=== PATIENT | male | born 1955 | race Caucasian/White ===

== ENCOUNTER 2024-08-06 18:46 | Emergency (ER) | payer OTHER ==
--- OUTSIDE RECORDS SUMMARY | 2024-08-06 18:52 | XMS REPORT | Clinical Summary ---
Author Name Unknown Organization [facility] Address [address] [place] [address] Care Team Providers Care File Drawer Finisher Name Role Phone Wen Cantu MD Primary Care Provider [phone] Rehan Gagnon MD Unavailable [phone] Dianna Rich DDS Unavailable [phone] Yolanda Kingston MD Unavailable Weston Ontiveros MD Unavailable [phone] Az Cruz MD Unavailable Kalee Jules MD Unavailable Ros Saucedo MD Unavailable [phone] Allergies Active Allergy Reactions Criticality Noted Date Comments Pembrolizumab Shortness Of Breath High 06/20/2023 He had sob, hives, rash all over the body Medications Medication Sig Dispensed Refills Start Date End Date Status fexofenadine (NIKKY) 180 mg tabletIndications:Mal ignant neoplasm of mandible Take 1 tablet (180 mg) by mouth daily. 90 tablet 2 09/12/20 23 Active levothyroxine (SYNTHROID, LEVOTHROID) 75 mcg tabletIndications:Squ amous cell carcinoma of head and neck TAKE 1 TABLET BY MOUTH EVERY DAY 90 tablet 1 07/31/20 24 Active NIFEdipine (PROCARDIA XL) 60 mg 24 hr tabletIndications:Abs cess of face Take 1 tablet (60 mg) by mouth daily for 66 days. 60 tablet 3 07/18/20 24 024 Active pregabalin (LYRICA) 25 mg capsuleIndications:Ab scess of face Take 1 capsule (25 mg) by mouth daily. 30 capsule 3 07/17/20 24 Active ondansetron (Zofran) 4 mg tabletIndications:Abs cess of face Take 1 tablet (4 mg) by mouth every 8 (eight) hours as needed for nausea. 30 tablet 07/17/20 24 Active Additional Information Patient not taking.Reason: Other, Reported on 07/21/2024 ondansetron (ZOFRAN) 4 mg tabletIndications:Abs cess of face Take 1 tablet (4 mg) by mouth as needed for nausea. 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 45 tablet 08/05/20 24 Active fexofenadine (NIKKY) 180 mg tabletIndications:Mal ignant neoplasm of mandible Take 1 tablet (180 mg) by mouth daily. 30 tablet 2 11/30/19 23 023 Discontinued(Re order) ondansetron (ZOFRAN) 4 mg tablet Take 1 tablet (4 mg) by mouth as needed. 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 30 tablet 3 09/12/20 23 024 Discontinued celecoxib (CeleBREX) 100 mg capsuleIndications:Go uty arthritis of left knee Take 1 capsule (100 mg) by mouth twice daily. 20 capsule 10/24/19 24 024 Discontinued ibuprofen (ADVIL,MOTRIN) 800 mg tabletIndications:Mal ignant neoplasm of mandible Take 1 tablet (800 mg) by mouth every 8 (eight) hours as needed for moderate pain or mild pain. 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 35 tablet 01/16/20 24 024 traMADol (Ultram) 50 mg tabletIndications:Squ amous cell carcinoma of head and neck Take 1 tablet (50 mg) by mouth every 8 (eight) hours as needed for moderate pain. 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 22 tablet 02/13/20 24 024 predniSONE (DELTASONE) 20 mg tabletIndications:Oth er polyosteoarthritis Take 1 tablet (20 mg) by mouth daily. 20 tablet 02/27/20 24 024 Discontinued predniSONE (DELTASONE) 5 mg tabletIndications:Squ amous cell carcinoma of head and neck,Multiple joint pain,Effects of immunotherapy Take 3 tablets (15 mg) by mouth daily. 90 tablet 3 03/18/20 24 024 Discontinued predniSONE (DELTASONE) 5 mg tabletIndications:Squ amous cell carcinoma of head and neck,Multiple joint pain Take 1 tablet (5 mg) by mouth daily. After 2 weeks take 2.5 mg (1/2 pill) daily 30 tablet 04/15/20 24 024 Discontinued(Re order) predniSONE (DELTASONE) 5 mg tabletIndications:Squ amous cell carcinoma of head and neck,Multiple joint pain Take 1.5 tablets (7.5 mg) by mouth daily. After 2 weeks take 2.5 mg (1/2 pill) daily 30 tablet 07/17/20 24 024 Discontinued(Re order) amoxicillin-clavulana te (AUGMENTIN) 875 mg-125 mg per tabletIndications:Abs cess of face Take 1 tablet (875 mg) by mouth every 12 (twelve) hours for 14 days. 28 tablet 07/17/20 24 024 ciprofloxacin HCl (CIPRO) 500 mg tabletIndications:Abs cess of face Take 1 tablet (500 mg) by mouth every 12 (twelve) hours for 14 days. 28 tablet 07/17/20 24 024 HYDROcodone-acetamino phen (NORCO) 10 mg-325 mg per tabletIndications:Abs cess of face Take 1 tablet by mouth every 8 (eight) hours as needed for severe pain. 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 Multiple joint pain 07/17/2024 Effects of immunotherapy 07/16/2024 Seronegative rheumatoid arthritis 07/16/2024 Cellulitis and abscess of neck 07/15/2024 Other psychological or physi haley stress, not elsewhere classified 07/14/2024 Cancer-related fatigue 07/14/2024 Nausea 07/14/2024 Jaw pain 07/12/2024 Leukocytosis 07/12/2024 Elevated BP reading 07/12/2024 Polyarthritis 07/12/2024 Mass of right submandibular region 07/12/2024 Secondary malignant neoplasm of right lung 03/14 Other acquired deformity of head 01/23/2022 Overview: Added automatically from request for surgery [id number] Attention to gastrostomy 01/23/2022 Overview: Added automatically from request for surgery [id number] Postsurgical lymphedema 01/22/2022 Last Assessment & Plan: The patient will be referred to Speech Pathology for lymphedema management. 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 He was encouraged to continue his head/neck exercises and oral care. Hypertension 07/06/2021 Encounters Date Type Department Care Team Description 08/05/2024 3:15 PM [facility] Hospital Encounter Diagnostic [facility] Center [address] [place] [id number] Ros Nicholson MD Squamous cell carcinoma of head and neck; Multiple joint pain 08/05/2024 2:00 PM GLOBAL MARKETING OPERATIONS MANAGER Office Visit Internal Medicine Center - Rheumatology [address] [facility], [address]th [place] [address] Ros Nicholson MD Seronegative rheumatoid arthritis (Primary Dx); Squamous cell carcinoma of head and neck; Multiple joint pain 08/05/2024 Travel 07/31/2024 Orders Only [facility] Neck Center - Medical Oncology [address] [place] [address] [facility], 10th Floor, [place] [address] Pamela Rubin, SLOPE HOIST OPERATOR 07/21/2024 2:00 PM CDT Telemedicine Internal Medicine Center [address] [place] [address] [facility], 9th [place] [address] Jovan Christianson MD Abscess 07/20/2024 Orders Only [facility] [address] [place] [phone] Dwayne Sierra MD 07/17/2024 Orders Only Internal Medicine Center [address] [place] [address] [facility], 9th [place] [address] Maren Lozada MD Abscess (Primary Dx) 07/14/2024 2:43 PM CDT Anesthesia Event Main Interventional Radiology [address] [place] [address] [facility], 3rd [place] [address] Padmini Wayne MD 07/14/2024 Orders Only MAIN [address] [place] [phone] Elina Edgar, SLOPE HOIST OPERATOR 07/13/2024 Travel 07/12/2024 9:42 AM CDT - 07/17/2024 1:48 PM CDT Hospital Encounter MAIN [address] [place] [id number] Bubba Collazo MD Elsayem, Ahmed, MD Chaftari, Patrick, MD Omara, Ayman, MD Tanwir, Hira, MD Jaw pain (Primary Dx); Mass of right submandibular region; Mass of right submandibular region; Malignant neoplasm of mandible; Squamous cell carcinoma of head and neck; Multiple joint pain; Abscess of face Discharge Disposition: Home 07/12/2024 Travel 07/11/2024 Refill Head and Neck [place] - Medical Oncology [address] [place] [address], 10th Floor, [place] [address] Pamela Rubin, PILLO Squamous cell carcinoma of head and neck 06/08/2024 Orders Only Head and Neck [place] - Medical Oncology [address] [place] [address], 10th Floor, [place] [address] Pamela Rubin, SLOPE HOIST OPERATOR Squamous cell carcinoma of head and neck (Primary Dx) 06/04/2024 11:00 AM CDT Follow-Up Head and Neck [facility] Medical Oncology [address] [place] [address], 10th Floor, [place] [address] Marianela Layne MD Squamous cell carcinoma of head and neck 06/04/2024 8:59 AM CDT - 06/04/2024 11:59 PM CDT Hospital Encounter [facility] [address] [place] [address] Pamela Rubin, PILLO Squamous cell carcinoma of head and neck Discharge Disposition: Home 06/04/2024 8:35 AM CDT Ancillary Procedure CT Imaging [address] [place] [address], 7th [place] [address] Pamela Rubin, SLOPE HOIST OPERATOR Squamous cell carcinoma of head and neck 06/04/2024 Travel 04/15/2024 12:30 PM CDT Office Visit Internal Medicine Center - Rheumatology [address] [place] [address], 6th [place] [address] Ros Nicholson MD Squamous cell carcinoma of head and neck; Multiple joint pain 04/15/2024 8:20 AM CDT - 04/15/2024 11:59 PM CDT Hospital Encounter Nuclear Medicine [address] [place] [address], 6th Floor, [place] [address] Ros Nicholson MD Squamous cell carcinoma of head and neck; Multiple joint pain Discharge Disposition: Home 04/15/2024 Travel 03/18/2024 9:49 AM CDT - 03/18/2024 11:59 PM CDT Hospital Encounter [facility] [address] [place] [id number] Ros Nicholson MD Multiple joint pain Discharge Disposition: Home 03/18/2024 9:00 AM CDT Consult Internal Medicine Center - Rheumatology [address] [place] [address], 6th [place] [address] Ros Nicholson MD Multiple joint pain (Primary Dx); Squamous cell carcinoma of head and neck; Effects of immunotherapy 03/18/2024 Travel 03/02/2024 Orders Only Neuroradiology [address] [place] [id number] Andrzej Rodriguez MD 02/27/2024 11:00 AM CDT Follow-Up [facility] Ne[facility] Center - Medical Oncology [address] [place] [address], 10th Floor, [place] [phone] Marianela Layne MD Other polyosteoarthritis (Primary Dx); Squamous cell carcinoma of head and neck 02/27/2024 8:26 AM CDT - 02/27/2024 11:59 PM CDT Hospital Encounter [facility] [address] [place] [address], [place] [address] Pamela Rubin, SLOPE HOIST OPERATOR Malignant neoplasm of mandible; Squamous cell carcinoma of head and neck Discharge Disposition: Home 02/27/2024 8:26 AM CDT - 02/27/2024 11:59 PM CDT Hospital Encounter Main CT IMAGING [address] [place] [address], 3rd [place] [address] Pamela Rubin, SLOPE HOIST OPERATOR Squamous cell carcinoma of head and neck Discharge Disposition: Home 02/27/2024 Orders Only [facility] - Medical Oncology [address] [place] [address], 10th Floor, [place] [address] Willem Gao, PharmD 02/27/2024 Travel 02/13/2024 Orders Only Head and Neck [place] - Medical Oncology [facility], 10th Floor, [place] [address] Pamela Rubin APRN Squamous cell carcinoma of head and neck (Primary Dx) 01/16/2024 3:30 PM CDT Telemedicine Head and Neck [place] - Medical Oncology [address] [place] [address], 10th Floor, [place] [address] Marianela Layne MD Fiebrich, Ashley K, APRN Squamous cell carcinoma of head and neck (Primary Dx) 01/13/2024 Orders Only Head and Neck [place] - Medical Oncology [address] [place] [address], 10th Floor, [place] [address] Pamela Rubin APRN Squamous cell carcinoma of head and neck (Primary Dx) 01/09/2024 Orders Only Head and Neck [place] - Medical Oncology [address] [place] [address], 10th Floor, [place] [address] Pamela Rubin APRN Squamous cell carcinoma of head and neck 12/09/2023 Refill Head and Neck [place] - Medical Oncology [address] [place] [address], 10th Floor, [place] [address] Pamela Rubin, PILLO Squamous cell carcinoma of head and neck 12/05/2023 10:30 AM GLOBAL MARKETING OPERATIONS MANAGER Follow-Up Head and Neck [facility] Medical Oncology [address] [place] [address], 10th Floor, [place] [address] Marianela Layne MD Malignant neoplasm of mandible 12/05/2023 6:55 AM GLOBAL MARKETING OPERATIONS MANAGER Ancillary Procedure CT Imaging [address] [place] [address], 7th [place] [address] Pamela Rubin, PILLO Malignant neoplasm of mandible 12/05/2023 6:40 AM GLOBAL MARKETING OPERATIONS MANAGER - 12/05/2023 11:59 PM GLOBAL MARKETING OPERATIONS MANAGER Hospital Encounter [facility] [address] [place] [address] Pamela Rubin, PILLO Malignant neoplasm of mandible; Squamous cell carcinoma of head and neck Discharge Disposition: Home 12/05/2023 Travel 10/28/2023 Orders Only Neuroradiology [address] [place] [address] Marie Blanco MD 10/28/2023 Orders Only Head and Neck [place] - Medical Oncology [address] [place] [address], 10th Floor, [place] [address] Pamela Rubin, PILLO Gouty arthritis of left knee (Primary Dx); Malignant neoplasm of mandible; Squamous cell carcinoma of head and neck 10/24/2023 12:30 PM GLOBAL MARKETING OPERATIONS MANAGER Infusion Ambulatory Treatment [place] [facility] [address] [facility], 8th [place] [address] Pamela Rubin, Anraldo Brownlee, DAVE Squamous cell carcinoma of head and neck (Primary Dx); Malignant neoplasm of mandible 10/24/2023 10:30 AM GLOBAL MARKETING OPERATIONS MANAGER Follow-Up Head and Neck [place] - Medical Oncology [address] [place] [address], 10th Floor, [place] [address] Marianela Layne MD Malignant neoplasm of mandible (Primary Dx); Gouty arthritis of left knee 10/24/2023 9:14 AM GLOBAL MARKETING OPERATIONS MANAGER - 10/24/2023 11:59 PM GLOBAL MARKETING OPERATIONS MANAGER Hospital Encounter [facility] [address] [place] [address], [place] [address] Pamela Rubin, PILLO Malignant neoplasm of mandible; Squamous cell carcinoma of head and neck Discharge Disposition: Home 10/24/2023 Orders Only Head [facility] Neck [place] - Medical Oncology [address] [place] [address], 10th Floor, [place] [address] Isaiah Toledo, PharmD 10/24/2023 Travel 09/12/2023 12:30 PM GLOBAL MARKETING OPERATIONS MANAGER Infusion Ambulatory Treatment [place] - [facility] [address] [facility], 8th [place] [address] Pamela Rubin, SLOPE HOIST OPERATOR Gilson Cheatham RN Squamous cell carcinoma of head and neck (Primary Dx); Malignant neoplasm of mandible 09/12/2023 11:30 AM GLOBAL MARKETING OPERATIONS MANAGER Telemedicine [facility] Neck Center - Medical Oncology [address] [place] [address] Main Bldg, 10th Floor, [place] [address] Marianela Layne MD Malignant neoplasm of mandible; Squamous cell carcinoma of head and neck 09/12/2023 7:45 AM GLOBAL MARKETING OPERATIONS MANAGER Ancillary Procedure CT Imaging [address] [facility], 7th [place] [address] Pamela Rubin, PILLO Malignant neoplasm of mandible 09/12/2023 6:45 AM GLOBAL MARKETING OPERATIONS MANAGER - 09/12/2023 11:59 PM GLOBAL MARKETING OPERATIONS MANAGER Hospital Encounter [facility] Center [address] [place] [address] Pamela Rubin, PILLO Malignant neoplasm of mandible; Squamous cell carcinoma of head and neck Discharge Disposition: Home 09/12/2023 [facility] Thor[facility] - Medical Oncology [address] [place] [address] Main Bldg, 9th [place] [address] Willem Gao, PharmD 09/12/2023 Travel after 08/07/2023 Surgical History Surgery Date Site/Laterality Comments MS OSTEOTOMY MANDIBLE SEGMENTAL 07/28/2021 Mandible/Midline Procedure: SEGMENTAL OSTEOTOMY OF ANTERIOR MANDIBLE; Surgeon: Wen Cantu MD; Location: MAIN OR; Service: [facility] - HEAD & NECK SURGERY Medical devices from this surgery are in the Medical Devices section. MS TRACHEOSTOMY PLANNED SEPARATE PROCEDURE 07/28/2021 Neck/Midline Procedure: TRACHEOSTOMY - PLANNED; Surgeon: Wen Cantu MD; Location: MAIN OR; Service: HN - HEAD & NECK SURGERY Medical devices from this surgery are in the Medical Devices section. MS CERVICAL LYMPHADEC MODIFIED RADICAL NECK DSJ 07/28/2021 Bilateral Procedure: LEVEL I-III NECK DISSECTION; Surgeon: Wen Cantu MD; Location: MAIN OR; Service: HN - HEAD & NECK SURGERY Medical devices from this surgery are in the Medical Devices section. MS BONE GRAFT MICROVASCULAR ANASTOMOSIS FIBULA 07/28/2021 Left Procedure: BONE GRAFT FROM FIBULA WITH MICROVASCULAR ANASTOMOSIS; Surgeon: Weston Ontiveros MD; Location: MAIN OR; Service: PLS - PLASTIC SURGERY Medical devices from this surgery are in the Medical Devices section. MS NEUROPLASTY &/TRANSPOSITION CRANIAL NERVE 07/28/2021 Right Procedure: TRANSPOSITION OF CRANIAL NERVE V3; Surgeon: Wen Cantu MD; Location: MAIN OR; Service: HN - HEAD & NECK SURGERY Medical devices from this surgery are in the Medical Devices section. MS SPLIT AGRFT T/A/L 1ST 100 CM/&/1% BDY INFT/CHLD 07/28/2021 Leg Upper/Right Procedure: SPLIT THICKNESS SKIN GRAFT OF TRUNK/ARM OR LEG; Surgeon: Weston Ontiveros MD; Location: MAIN OR; Service: PLS - PLASTIC SURGERY Medical devices from this surgery are in the Medical Devices section. MS INCISION & DRAINAGE COMPLEX PO WOUND INFECTION 09/01/2021 Mouth/N/A Procedure: INCISION AND DRAINAGE OF INFECTED POSTOPERATIVE WOUND; Surgeon: Weston Ontiveros MD; Location: MAIN OR; Service: PLS - PLASTIC SURGERY MS UNLISTED PROCEDURE DENTOALVEOLAR STRUCTURES 09/01/2021 Mouth/Left Procedure: DENTAL EXTRACTION(S); Surgeon: Dianna Rich DDS; Location: MAIN OR; Service: ORAL ONCOLOGY & MAXILLOFACIAL PROSTHODONTICS MS LARYNGOSCOPY W/WO TRACHEOSCOPY DX EXCEPT 09/21/2021 Mouth/N/A Procedure: DIAGNOSTIC DIRECT LARYNGOSCOPY; Surgeon: Johny Sotelo MD; Location: MAIN OR; Service: HN - HEAD & NECK SURGERY MS REPAIR COMPLEX SCALP/ARM/LEG 1.1-2.5 CM 2021 N/A Procedure: COMPLEX CLOSURE OF mouth ; Surgeon: Weston Ontiveros MD; Location: MAIN OR; Service: PLS - PLASTIC SURGERY Medical History Medical History Date Comments Hypertension To long to remember Tooth disorder Will bring a 3 D xray Gout To long ago Squamous cell carcinoma of head and neck Family History Medical History Relation Name Comments Stroke Father No Known Problems Mother Lung cancer Paternal Grandfather smoker Colon cancer Paternal Grandmother Relation Name Status Comments Daughter 1 Alive Daughter 2 Alive Father Mother Alive Paternal Grandfather Paternal Grandmother Social History Tobacco Use Types Packs/Day Years Used Date Smoking Tobacco: Former Cigarettes 1 51.8 0 09/30/1969 - 07/27/2021 Smokeless Tobacco: Never Tobacco Cessation:Counseling Given: Not Answered Alcohol Use Standard Drinks/Week Comments Yes 0 (1 standard drink = 0.6 oz pur e alcohol) 6 cans of beer weekly Sex and Gender Information Value Date Recorded Sex Assigned at Not on file Gender Identity Male 06/30/2021 2:42 PM CDT Sexual Orientation Not on file Job Start Date Occupation Industry Not on file Not on file Not on file Obstetrics History Last Filed Vital Signs Vital Sign Reading Time Taken Comments Blood Pressure 150/74 08/05/2024 1:50 PM GLOBAL MARKETING OPERATIONS MANAGER Pulse 80 08/05/2024 1:50 PM GLOBAL MARKETING OPERATIONS MANAGER Temperature 36.7 C (98.1 F) 08/05/2024 1:50 PM CS T Respiratory Rate 16 08/05/2024 1:50 PM GLOBAL MARKETING OPERATIONS MANAGER Oxygen Saturation 98% 08/05/2024 1:50 PM GLOBAL MARKETING OPERATIONS MANAGER Inhaled Oxygen Concentration - - Weight 84 kg (185 lb 3 oz) 08/05/2024 1:50 PM CS T Height 176.5 cm (5' 9.49") 07/13/2024 3:11 PM CD T Body Mass Index 26.96 07/13/2024 3:11 PM CDT Plan of Treatment Upcoming Encounters Date Type Department Care Team (Late st Contact Info) Description 08/18/2024 2:30 PM GLOBAL MARKETING OPERATIONS MANAGER Telemedicine Internal Medicine Center [address] [place] [address], 9th [place] [address] Jovan Christianson MD [address] [place] [phone] [email or web address] 09/02/2024 11:30 AM GLOBAL MARKETING OPERATIONS MANAGER Office Visit Internal Medicine Center - Rheumatology [address] [place] [address], [address]th [place] [address] Ros Saucedo MD [address] [place] [phone] [email or web address] 10/08/[email or web address] 7:30 AM GLOBAL MARKETING OPERATIONS MANAGER Appointment Diagnostic Laboratory Center [address] [place] [address] Pamela Rubin, SLOPE HOIST OPERATOR [address] [place] [address] [email or web address] 10/08/2024 8:10 AM GLOBAL MARKETING OPERATIONS MANAGER Ancillary Procedure CT Imaging [address] [place] [address], 7th [place] [address] Pamela Rubin, SLOPE HOIST OPERATOR [address] [place] [address] [email or web address] 10/08/[email or web address] 12:30 PM GLOBAL MARKETING OPERATIONS MANAGER Follow-Up Head and Neck Center - Medical Oncology [address] [place] [address], 10th Floor, [place] [address] Marianela Layne MD [address] [place] [phone] [email or web address] 04/21/2025 11:30 AM CDT Appointment Diagnostic [facility] Center [address] [place] [address] Ros Saucedo MD [address] [place] [phone] [email or web address] 04/21/2025 12:40 PM CDT Appointment Nuclear Medicine [address] [place], [place] [address], [address] Floor, [place] [address] Ros Saucedo MD [address] [place] [id number] [email or web address] 04/21/2025 1:30 PM CDT Office Visit Internal Medicine Center - Rheumatology [address] [place] [address], 6[address] [place] [address] Ros Saucedo MD [address] [place] [address] [email or web address] Maintenance Due Date Last Done Comments COVID-19 Vaccine (#1) 1960 Pneumococcal Vaccine: 65+ Years (1 of 2 - PCV) 959 Influenza Vaccine (#1) 2024 Medical Devices Implanted Type Area Bankruptcy Attorney Device Identifier Shelf Expiration Date Model / Serial / Lot Campus Interviews Intern Microvascular Anastomotic Device 4.0mm - [id number] Implanted:Qty: 1 on 07/28/2021 by Weston Ontiveros MD at [facility] CardioPulm Left: Neck [employer] 11/14/2025 [id number] / / [id number] Axoguard Nerve Connector 4mm X 15mm - [id number] Implanted:Qty: 1 on 07/28/2021 by Weston Ontiveros MD at [facility] Implant AXOGEN 03/12/2023 [id number] / / [id number] Axoguard Nerve Connector 4mm X 15mm - [id number] Implanted:Qty: 1 on 07/28/2021 by Weston Ontiveros MD at [facility] Implant AXOGEN 03/12/2023 [id number] / / [id number] 2 Avance Nerve Graft 3-4mm X 70mm - [id number] Implanted:Qty: 1 on 07/28/2021 by Weston Ontiveros MD at [facility] Implant AXOGEN 11/29/2023 [id number] / / [id number] Ti Patient Specific Plate Aiyana Ible/ W/O Angle/2.0mm Thick - [id number] Implanted:Qty: 1 on 07/28/2021 by Weston Ontiveros MD at [facility] Implant Left: Mandible DEPUY SD480.11 2 / / NA Screw 2.0mm Ti Mandible St 10mm - [id number] Implanted:Qty: 8 on 07/28/2021 by Weston Ontiveros MD at [facility] Metalware Left: Mandible [employer] [place] 04.503.4 10.01 / / Screw 2.0mm Ti Mandible St 14mm - [id number] Implanted:Qty: 1 on 07/28/2021 by Weston Ontiveros MD at [facility] Metalware Left: Mandible SYNTHES [facility] 503.4 14.01 / / Screw 2.0mm Ti Mandible St 16mm - [id number] Implanted:Qty: 3 on 07/28/2021 by Weston Ontiveros MD at [facility] Metalware Left: Mandible [employer] [facility] 503.4 16.01 / / Screw 2.0mm Ti Mandible St 18mm - [id number] Implanted:Qty: 4 on 07/28/2021 by Weston Ontiveros MD at [facility] Metalware Left: Mandible [employer] [facility] .503.4 18.01 / / Procedures Procedure Name Priority Date/Time Associated Diagnosis Comments VITAMIN D 25 HYDROXY LEVEL Routine 08/05/2024 3:27 PM GLOBAL MARKETING OPERATIONS MANAGER Squamous cell carcinoma of head and neck Multiple joint pain RHEUMATOID FACTOR QUANTITATIVE Routine 08/05/2024 3:27 PM GLOBAL MARKETING OPERATIONS MANAGER Squamous cell carcinoma of head and neck Multiple joint pain C REACTIVE PROTEIN Routine 08/05/2024 3: 27 PM GLOBAL MARKETING OPERATIONS MANAGER Squamous cell carcinoma of head and neck Multiple joint pain SEDIMENTATION RATE NON-AUTOMATED Routine 08/05/2024 3:27 PM GLOBAL MARKETING OPERATIONS MANAGER Squamous cell carcinoma of head and neck Multiple joint pain .CBC Routine 07/17/2024 1:21 AM CDT HLA ANTIBODY TEST HLA AB Routine 07/17/2024 1:21 AM CDT COMPLETE BLOOD COUNT W/ DIFFERENTIAL Routine 07/17/2024 1:21 AM CDT PHOSPHORUS LEVEL Routine 07/17/2024 1:21 AM CDT MAGNESIUM LEVEL Routine 07/17/2024 1:21 AM CDT BASIC METABOLIC PANEL, CALCIUM TOTAL Routine 07/17/2024 1:21 AM CDT EKG, 12-LEAD (PORTABLE) Routine 07/17/2024 VANCOMYCIN TROUGH Timed Study 07/16/2024 11: 51 PM CDT .CBC Routine 07/16/2024 12:35 AM CDT COMPLETE BLOOD COUNT W/ DIFFERENTIAL Routine 07/16/2024 12:35 AM CDT PHOSPHORUS LEVEL Routine 07/16/2024 12:3 5 AM CDT MAGNESIUM LEVEL Routine 07/16/2024 12:35 AM CDT BASIC METABOLIC PANEL, CALCIUM TOTAL Routine 07/16/2024 12:35 AM CDT .CBC Routine 07/15/2024 2:40 AM CDT COMPLETE BLOOD COUNT W/ DIFFERENTIAL Routine 07/15/2024 2:40 AM CDT PHOSPHORUS LEVEL Routine 07/15/2024 2:40 AM CDT MAGNESIUM LEVEL Routine 07/15/2024 2:40 AM CDT BASIC METABOLIC PANEL, CALCIUM TOTAL Routine 07/15/2024 2:40 AM CDT IR US GUIDED BIOPSY MUSCLE/SOFT TISSUE- HEAD/NECK 60 STAT 07/14/2024 4:09 PM CDT Mass of right submandibular region ANAEROBIC CULTURE Routine 07/14/2024 3:5 7 PM CDT TISSUE/FNA CULTURE W/ GRAM STAIN Routine 07/14/2024 3:57 PM CDT FUNGAL CULTURE W/ SMEAR Routine 07/14/2024 3:57 PM CDT AFB SMEAR Routine 07/14/2024 3:56 PM CDT AFB CULTURE W/ SMEAR - PERFORMABLE Routine 07/14/2024 3:56 PM CDT PATHOLOGY BIOPSY INTERPRETATION Routine 07/14/2024 3:55 PM CDT Jaw pain Mass of right submandibular region .CBC Routine 07/14/2024 2:30 AM CDT COMPLETE BLOOD COUNT W/ DIFFERENTIAL Routine 07/14/2024 2:30 AM CDT PHOSPHORUS LEVEL Routine 07/14/2024 2:30 AM CDT MAGNESIUM LEVEL Routine 07/14/2024 2:30 AM CDT BASIC METABOLIC PANEL, CALCIUM TOTAL Routine 07/14/2024 2:30 AM CDT .CBC Routine 07/13/2024 2:50 AM CDT COMPLETE BLOOD COUNT W/ DIFFERENTIAL Routine 07/13/2024 2:50 AM CDT PHOSPHORUS LEVEL Routine 07/13/2024 2:50 AM CDT MAGNESIUM LEVEL Routine 07/13/2024 2:50 AM CDT BASIC METABOLIC PANEL, CALCIUM TOTAL Routine 07/13/2024 2:[address] SOFT TISSUE NECK W CONTRAST STAT 07/12/2024 2:56 PM CDT HC PROCALCITONIN (PCT) Add-On 07/12/2024 10:16 AM CDT C REACTIVE PROTEIN Add-On 07/12/2024 10 :16 AM CDT SEDIMENTATION RATE NON-AUTOMATED Add-On 07/12/2024 10:16 AM CDT .CBC Routine 07/12/2024 10:16 AM CDT PHOSPHORUS LEVEL Routine 07/12/2024 10:1 6 AM CDT MAGNESIUM LEVEL Routine 07/12/2024 10:16 AM CDT COMPREHENSIVE METABOLIC PANEL Routine 07/12/2024 10:16 AM CDT APTT Routine 07/12/2024 10:16 AM CDT PROTHROMBIN TIME Routine 07/12/2024 10:1 6 AM CDT COMPLETE BLOOD COUNT W/ DIFFERENTIAL Routine 07/12/2024 10:[address] SOFT TISSUE NECK W CONTRAST Routine 06/04/2024 10:22 AM CDT Squamous cell carcinoma of head and neck CT CHEST W CONTRAST Routine 06/04/2024 1 0:22 AM CDT Squamous cell carcinoma of head and neck POC CREATININE Routine 06/04/2024 9:10 AM CDT .CBC Routine 06/04/2024 9:08 AM CDT Squamous cell carcinoma of head and neck FREE THYROXINE Routine 06/04/2024 9:08 AM CDT Squamous cell carcinoma of head and neck THYROID STIMULATING HORMONE Routine 06/04/2024 9:08 AM CDT Squamous cell carcinoma of head and neck COMPREHENSIVE METABOLIC PANEL Routine 06/04/2024 9:08 AM CDT Squamous cell carcinoma of head and neck COMPLETE BLOOD COUNT W/ DIFFERENTIAL Routine 06/04/2024 9:08 AM CDT Squamous cell carcinoma of head and neck DEXA BONE MINERAL DENSITY BOTH HIPS AND SPINE Routine 04/15/2024 9:34 AM CDT Squamous cell carcinoma of head and neck Multiple joint pain VITAMIN D 25 HYDROXY LEVEL Routine 03/18/2024 9:57 AM CDT Multiple joint pain C REACTIVE PROTEIN Routine 03/18/2024 9: 57 AM CDT Multiple joint pain SEDIMENTATION RATE NON-AUTOMATED Routine 03/18/2024 9:57 AM CDT Multiple joint pain ANTINUCLEAR ANTIBODY HEP-2 SUBSTRATE IGG Routine 03/18/2024 9:57 AM CDT Multiple joint pain RHEUMATOID FACTOR QUANTITATIVE Routine 03/18/2024 9:57 AM CDT Multiple joint pain CYCLIC CITRULLINE ANTIBODY IGG Routine 03/18/2024 9:57 AM CDT Multiple joint pain CT SOFT TISSUE NECK W CONTRAST Routine 02/27/2024 10:05 AM CDT Squamous cell carcinoma of head and neck CT CHEST W CONTRAST Routine 02/27/2024 1 0:05 AM CDT Squamous cell carcinoma of head and neck POC CREATININE Routine 02/27/2024 8:47 AM CDT .CBC Routine 02/27/2024 8:45 AM CDT Malignant neoplasm of 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 PHOSPHORUS LEVEL Routine 02/27/2024 8:45 AM CDT Malignant neoplasm of 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 MAGNESIUM LEVEL Routine 02/27/2024 8:45 AM CDT Malignant neoplasm of 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 COMPREHENSIVE METABOLIC PANEL Routine 02/27/2024 8:45 AM CDT Malignant neoplasm of 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 COMPLETE BLOOD COUNT W/ DIFFERENTIAL Routine 02/27/2024 8:45 AM CDT Malignant neoplasm of 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 FREE THYROXINE Routine 02/27/2024 8:45 AM CDT Malignant neoplasm of 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 THYROID STIMULATING HORMONE Routine 02/27/2024 8:45 AM CDT Malignant neoplasm of 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 CT SOFT TISSUE NECK W CONTRAST Routine 12/05/2023 7:20 AM GLOBAL MARKETING OPERATIONS MANAGER Malignant neoplasm of mandible CT CHEST W CONTRAST Routine 12/05/2023 7 :20 AM GLOBAL MARKETING OPERATIONS MANAGER Malignant neoplasm of mandible POC CREATININE Routine 12/05/2023 6:53 AM GLOBAL MARKETING OPERATIONS MANAGER URIC ACID Add-On 12/05/2023 6:52 AM GLOBAL MARKETING OPERATIONS MANAGER Malignant neoplasm of mandible .CBC Routine 12/05/2023 6:52 AM GLOBAL MARKETING OPERATIONS MANAGER Malignant neoplasm of 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 PHOSPHORUS LEVEL Routine 12/05/2023 6:52 AM GLOBAL MARKETING OPERATIONS MANAGER Malignant neoplasm of 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 MAGNESIUM LEVEL Routine 12/05/2023 6:52 AM GLOBAL MARKETING OPERATIONS MANAGER Malignant neoplasm of 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 COMPREHENSIVE METABOLIC PANEL Routine 12/05/2023 6:52 AM GLOBAL MARKETING OPERATIONS MANAGER Malignant neoplasm of 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 COMPLETE BLOOD COUNT W/ DIFFERENTIAL Routine 12/05/2023 6:52 AM GLOBAL MARKETING OPERATIONS MANAGER Malignant neoplasm of 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 FREE THYROXINE Routine 12/05/2023 6:52 AM GLOBAL MARKETING OPERATIONS MANAGER Malignant neoplasm of 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 THYROID STIMULATING HORMONE Routine 12/05/2023 6:52 AM GLOBAL MARKETING OPERATIONS MANAGER Malignant neoplasm of 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 .CBC Routine 10/24/2023 9:20 AM GLOBAL MARKETING OPERATIONS MANAGER Malignant neoplasm of 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 PHOSPHORUS LEVEL Routine 10/24/2023 9:20 AM GLOBAL MARKETING OPERATIONS MANAGER Malignant neoplasm of 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 MAGNESIUM LEVEL Routine 10/24/2023 9:20 AM GLOBAL MARKETING OPERATIONS MANAGER Malignant neoplasm of 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 COMPREHENSIVE METABOLIC PANEL Routine 10/24/2023 9:20 AM GLOBAL MARKETING OPERATIONS MANAGER Malignant neoplasm of 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 COMPLETE BLOOD COUNT W/ DIFFERENTIAL Routine 10/24/2023 9:20 AM GLOBAL MARKETING OPERATIONS MANAGER Malignant neoplasm of 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 FREE THYROXINE Routine 10/24/2023 9:20 AM GLOBAL MARKETING OPERATIONS MANAGER Malignant neoplasm of 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 THYROID STIMULATING HORMONE Routine 10/24/2023 9:20 AM GLOBAL MARKETING OPERATIONS MANAGER Malignant neoplasm of 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 CT SOFT TISSUE NECK W CONTRAST Routine 09/12/2023 9:40 AM GLOBAL MARKETING OPERATIONS MANAGER Malignant neoplasm of mandible CT CHEST W CONTRAST Routine 09/12/2023 9 :40 AM GLOBAL MARKETING OPERATIONS MANAGER Malignant neoplasm of mandible .CBC Routine 09/12/2023 7:14 AM GLOBAL MARKETING OPERATIONS MANAGER Malignant neoplasm of 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 PHOSPHORUS LEVEL Routine 09/12/2023 7:14 AM GLOBAL MARKETING OPERATIONS MANAGER Malignant neoplasm of 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 MAGNESIUM LEVEL Routine 09/12/2023 7:14 AM GLOBAL MARKETING OPERATIONS MANAGER Malignant neoplasm of 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 COMPREHENSIVE METABOLIC PANEL Routine 09/12/2023 7:14 AM GLOBAL MARKETING OPERATIONS MANAGER Malignant neoplasm of 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 COMPLETE BLOOD COUNT W/ DIFFERENTIAL Routine 09/12/2023 7:14 AM GLOBAL MARKETING OPERATIONS MANAGER Malignant neoplasm of 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 [facility] Vitamin D 25 OH 25(L) 30 - 100 ng/mL 08/05/2024 4:51 PM GLOBAL MARKETING OPERATIONS MANAGER [facility] Blood Peripheral blood specimen / Unknown Venipuncture / Unknown 08/05/2024 3:27 PM GLOBAL MARKETING OPERATIONS MANAGER 08/05/2024 3:33 PM GLOBAL MARKETING OPERATIONS MANAGER Narrative [facility] - 08/05/2024 4:51 PM GLOBAL MARKETING OPERATIONS MANAGER Reference Range: Deficiency: <=20 ng/mL Insufficiency: 21-29 ng/mL Sufficiency: 30-100 ng/mL Potential toxicity: >100 ng/mL Ros Saucedo MD LAB BLOOD ORDERA BLES Performing Organization Address City/[facility]/ZIP Co de Phone Number [facility] Unless otherwise noted, all lab tests performed by: Division of Pathology and Laboratory Medicine [address] [place] [address] * (ABNORMAL) Sed Rate (08/05/2024 3:27 PM GLOBAL MARKETING OPERATIONS MANAGER) Only the most recent of3 resultswithin the time period is included. [facility] Sedimentation Rate 25(H) <=20 mm/hr 2023 4:31 PM GLOBAL MARKETING OPERATIONS MANAGER [facility] Blood Peripheral blood specimen / Unknown Venipuncture / Unknown 08/05/2024 3:27 PM GLOBAL MARKETING OPERATIONS MANAGER 08/05/2024 3:33 PM GLOBAL MARKETING OPERATIONS MANAGER Ros Saucedo MD LAB BLOOD ORDERA BLES Performing Organization Address City/[facility]/ZIP Co de Phone Number [facility] Unless otherwise noted, all lab tests performed by: Division of Pathology and Laboratory Medicine [address] [place] [id number] * Rheumatoid Factor Quant (08/05/2024 3:27 PM GLOBAL MARKETING OPERATIONS MANAGER) Only the most recent of2 resultswithin the time period is included. [facility] Rheumatoid Factor 10 <14 IU/mL 08/05/2024 4:51 PM GLOBAL MARKETING OPERATIONS MANAGER [facility] Blood Peripheral blood specimen / Unknown Venipuncture / Unknown 08/05/2024 3:27 PM GLOBAL MARKETING OPERATIONS MANAGER 08/05/2024 3:33 PM GLOBAL MARKETING OPERATIONS MANAGER Ros Saucedo MD LAB BLOOD ORDERA BLES Performing Organization Address City/[facility]/ZIP Co de Phone Number [facility] Unless otherwise noted, all lab tests performed by: Division of Pathology and Laboratory Medicine [address] [place] [address] * CRP (08/05/2024 3:27 PM GLOBAL MARKETING OPERATIONS MANAGER) Only the most recent of3 resultswithin the time period is included. [facility] CRP (C Reactive Protein) 7.77 mg/L 08/05/2024 4:51 PM GLOBAL MARKETING OPERATIONS MANAGER [facility] Blood Peripheral blood specimen / Unknown Venipuncture / Unknown 08/05/2024 3:27 PM GLOBAL MARKETING OPERATIONS MANAGER 08/05/2024 3:33 PM GLOBAL MARKETING OPERATIONS MANAGER Narrative [facility] - 08/05/2024 4:51 PM GLOBAL MARKETING OPERATIONS MANAGER Adult Reference ranges for HS CRP assay are as follows: Reference ranges when used to assess cardiac risk: <1.00 mg/L Low cardiovascular risk 1.00-3.00 mg/L Average cardiovascular risk >3.00 mg/L High cardiovascular risk Reference ranges when used to assess inflammatory responses: Less than or equal to 10.00 mg/L. Ros Saucedo MD LAB BLOOD ORDERA BLEQuynh Performing Organization Address City/[facility]/ZIP Co de Phone Number [facility] Unless otherwise noted, all lab tests performed by: Division of Pathology and Laboratory Medicine [address] [place] [phone] * (ABNORMAL) .CBC (07/17/2024 1:21 AM CDT) Only the most recent of11 resultswithin the time period is included. [facility] White Blood Cell 9.2 4.1 - 10.5 K/uL 07/17/2024 1:42 AM CDT [facility] Red Blood Cell 3.35(L) 4.30 - 6.04 M/uL 07/17/2024 1:42 AM T [facility] Hemoglobin 10.7(L) 13.3 - 17.4 g/dL 07/17/2024 1:42 AM [facility] Hematocrit 31.0(L) 39.5 - 51.8 % 07/17/2024 1:42 AM [facility] Mean Cell Volume 93 82 - 99 fL 07/17/2024 1:42 AM T [facility] Mean Cell Hemoglobin 31.9 26.6 - 33.2 pg 07/17/2024 1:42 AM T [facility] Mean Cell Hemoglobin Concentration 34.5 31.1 - 35.2 g/dL 07/17/2024 1:42 AM [facility] RDW-SD 48.5 37.5 - 49.7 fL 07/17/2024 1:42 AM [facility] Red Cell Diameter Width 14.3 11.6 - 15.5 % 07/17/2024 1:42 AM [facility] Platelet 178 160 - 397 K/uL 07/17/2024 1:42 AM [facility] Mean Platelet Volume 10.0 9.1 - 12.6 fL 07/17/2024 1:42 AM [facility] INRBC 0.0 0.0 - 0.1 /100 WBC 07/17/2024 1:42 AM [facility] Comment: The INRBC (instrument NRBC) value reflects the enumeration of nucleated red blood cells contained in a 200uL sample of whole blood analyzed by the instrument. This value may differ from the NRBC value reported in a manual differential, which is based on a 100 cell differential. Neutrophil % 79.0(H) 43.2 - 72.7 % 07/17/2024 1:42 AM [facility] Lymphocyte % 5.9(L) 16.8 - 46.2 % 07/17/2024 1:42 AM [facility] Monocyte % 8.6 5.1 - 12.5 % 07/17/2024 1:42 AM [facility] Eosinophil % 5.0 0.4 - 6.3 % 07/17/2024 1:42 AM CDT [facility] Basophil % 0.7 0.2 - 1.4 % 07/17/2024 1:42 AM CDT [facility] IGRE % 0.8 0.1 - 1.5 % 07/17/2024 1:42 AM CDT [facility] Comment:The IGRE% includes M etamyelocytes, Myelocytes and Promyelocytes. Neutrophil Abs 7.23 1.95 - 7.25 K/uL 07/17/2024 1:42 AM CDT [facility] Lymphocyte Abs 0.54(L) 1.01 - 3.24 K/uL 07/17/2024 1:42 AM CDT [facility] Monocyte Abs 0.79 0.24 - 0.85 K/uL 07/17/2024 1:42 AM CDT [facility] Eosinophil Abs 0.46 0.02 - 0.50 K/uL 07/17/2024 1:42 AM CDT [facility] Basophil Abs 0.06 0.02 - 0.09 K/uL 07/17/2024 1:42 AM CDT [facility] IG Abs 0.07 0.01 - 0.12 K/uL 07/17/2024 1:42 AM CDT [facility] Blood Peripheral blood specimen / Unknown Venipuncture / Unknown 07/17/2024 1:21 AM CDT 07/17/2024 1:26 AM CDT Jonna Dewitt APRN LAB BLOOD ORDERABL ES [facility] Unless otherwise noted, all lab tests performed by: Division of Pathology and Laboratory Medicine [address] [place] [address] * HLA Antibody Test (07/17/2024 1:21 AM CDT) Blood Peripheral blood specimen / Unknown Venipuncture / Unknown 07/17/2024 1:21 AM CDT 07/17/2024 1:26 AM CDT Manju Nation MD HLA TYPING LAB ORDER ROBIN HLA LAB [facility] HLA LAB [address] [facility] [place] [address] * (ABNORMAL) Basic Metabolic Panel- Total Calcium (07/17/2024 1:21 AM CDT) Only the most recent of5 resultswithin the time period is included. eGFR 59(L) >=60 mL/min/1. 73 sq. m 07/17/2024 2:06 AM CDT [facility] Comment: The eGFRcr is calculated with the 2020 CKD-EPI creatinine equation using creatinine, patient's age, and sex for adults 18 years of age and older. Other factors, especially muscle mass, may affect accuracy and need to be considered. According to the Kidney Disease: Improving Global Outcomes (KDIGO) CKD Work Group 2012 Clinical Practice Guideline, chronic kidney disease (CKD) is defined as the abnormalities of kidney structure or function, present for more than 3 months, with implications for health. CKD should be classified by cause, GFR category, and albuminuria category. KDIGO guidelines provide the following GFR categories. Stage / Description / GFR mL/min/1.73 m2: G1* / Normal or high / >= 90 G2* / Mildly decreased / 60-89 G3a / Mildly to moderately decreased / 45-59 G3b / Moderately to severely decreased / 30-44 G4 / Severely decreased / 15-29 G5 / Kidney failure / <15 *In the absence of evidence of kidney damage, neither G1 nor G2 fulfill criteria for CKD. Calcium Level Total 9.1 8.2 - 10.2 mg/dL 07/17/2024 2:06 AM CDT [facility] Sodium Level 138 136 - 145 mmol/L 07/17/2024 2:06 AM CDT [facility] Potassium Level 3.7 3.4 - 4.5 mmol/L 07/17/2024 2:06 AM CDT [facility] Chloride 100 98 - 107 mmol/L 07/17/2024 2:06 AM CDT [facility] CO2 24 22 - 29 mmol/L 07/17/2024 2:06 AM CDT [facility] Anion Gap 14 4 - 14 mmol/L 07/17/2024 2:06 AM CDT [facility] Creatinine 1.30(H) 0.67 - 1.17 mg/dL 07/17/2024 2:06 AM CDT [facility] BUN 22 6 - 23 mg/dL 07/17/2024 2:06 AM CDT [facility] Glucose Level 116(H) 70 - 99 mg/dL 07/17/2024 2:06 AM CDT [facility] Comment: Effective 04/25/16, the glucose reference intervals have been updated based on [place] Diabetes [employer] guidelines (Standards of Medical Care in Diabetes 2016. Diabetes Care 2016; 39: S13-S22). Fasting blood glucose: Normal: 70-99 mg/dL Impaired fasting glucose (increased risk for diabetes or pre-diabetes): 100-125 mg/dL Diabetes mellitus: >/=126 mg/dL Random blood glucose: Normal: 70-199 mg/dL Note: Random glucose >100 mg/dL is associated with increased risk for diabetes. Blood Peripheral blood specimen / Unknown Venipuncture / Unknown 07/17/2024 1:21 AM CDT 07/17/2024 1:26 AM CDT Jonna Dewitt APRN LAB BLOOD ORDERABL ES Performing Organization Address City/[facility] Co de Phone Number [facility] Unless otherwise noted, all lab tests performed by: Division of Pathology and Laboratory Medicine [address] [place] [id number] * Phosphorus Level (07/17/2024 1:21 AM CDT) Only the most recent of10 resultswithin the time period is included. Phosphorus Level 3.0 2.5 - 4.5 mg/dL 07/17/2024 2:06 AM CDT [facility] Blood Peripheral blood specimen / Unknown Venipuncture / Unknown 07/17/2024 1:21 AM CDT 07/17/2024 1:26 AM CDT Jonna Dewitt APRN LAB BLOOD ORDERABL ES [facility] Unless otherwise noted, all lab tests performed by: Division of Pathology and Laboratory Medicine [address] [place] [id number] * Magnesium Level (07/17/2024 1:21 AM CDT) Only the most recent of10 resultswithin the time period is included. [facility] Magnesium Level 1.9 1.6 - 2.6 mg/dL 07/17/2024 2:06 AM CDT [facility] Blood Peripheral blood specimen / Unknown Venipuncture / Unknown 07/17/2024 1:21 AM CDT 07/17/2024 1:26 AM CDT Jonna Dewitt APRN LAB BLOOD ORDERABL ES Performing Organization Address [facility] Co de Phone Number [facility] Unless otherwise noted, all lab tests performed by: Division of Pathology and Laboratory Medicine [facility] [place] [address] * EKG, 12-Lead (Portable) (07/17/2024) Maren Lozada MD ECG ORDERABLES Performing Organization Address [facility]/ZIP Co de Phone Number [facility] * Vancomycin Trough (07/16/2024 11:51 PM CDT) [facility] Vancomycin Trough 11.5 5.0 - 20.0 mcg/mL 07/17/2024 12:24 AM CDT [facility] Vancomycin Trough Dose Time 07/17/2024 12:24 AM CDT [facility] Vancomycin Trough Dose Date 07/17/2024 12:24 AM CDT [facility] Blood Peripheral blood specimen / Unknown Venipuncture / Unknown 07/16/2024 11:51 PM CDT 07/16/2024 11:55 PM CDT Narrative [facility] - 07/17/2024 12:24 AM CDT Toxic Trough Level: >20 mcg/ml Uncomplicated MRSA bacteremia: 10-15mcg/mL MRSA bacteremia or endocarditis and other severe invasive MRSA infections (PJI, HAP, HUMAN SERVICE TECHNICIAN infections): 15-20mcg/mL Shanon Leigh MD LAB BLOOD ORDERABLES [facility] Unless otherwise noted, all lab tests performed by: Division of Pathology and Laboratory Medicine [address] [place] [id number] * IR US GUIDED BIOPSY MUSCLE/SOFT TISSUE- HEAD/NECK (07/14/2024 4:09 PM CDT) Anatomical Region Laterality Modality Soft Tissue/Muscle Computed Loi graphy, Ultrasound Narrative 07/14/2024 4:15 PM CDT Date of Procedure: 07/14/24 Attending Physician: Aidan Estes MD Plan Checker: None Pre Procedure Diagnosis: Mass of right submandibular region [[id number]] Post Procedure Diagnosis: Unchanged Indication: New mass / nodule for tissue diagnosis Protocol Number: N/A Title of Procedure: Percutaneous Ultrasound-Guided Biopsy Operative Findings: Percutaneous image-guided biopsy of 1.4 cm right submandibular lesion . Consent: The procedure, risks, indications and alternatives were explained. All questions were answered and informed consent was obtained. I have reviewed the history and physical dictated by the JV / fellow. Sedation/Anesthesia: None Procedure in Detail: A time out was performed prior to the start of the procedure and the correct patient, procedure, presence of consent, site, and side were confirmed with all members of the team. With the patient in the supine position, the skin overlying the area of interest was prepped and draped in the usual sterile fashion. Lidocaine 1% was used for local anesthesia. Using an anterior approach under Ultrasound image-guidance, a 17 gauge needle was advanced down to the right submandibular lesion . An image was obtained and placed into the medical record. Samples were obtained for evaluation. Sampling: Core Biopsy: An 18 gauge needle used to obtain samples for surgical pathology evaluation. Total number of samples: 3 In addition 1 - 2 ml of turbid, grayish fluid was aspirated Specimens Disposition: Diagnostic Biopsy: The biopsy samples were submitted to pathology. Microbiology samples: Additional samples were obtained and submitted for microbiologic evaluation. Additional Comments: None Estimated Blood Loss: Minimal Immediate Complications: None Disposition: PACU Plan: No follow-up with Interventional Radiology required. Dwayne Sierra MD IMG IR ORDERABLES * (ABNORMAL) Tissue/FNA Culture w/ Gram Stain (07/14/2024 3:57 PM CDT) Tissue/FNA Culture Many Streptococcus mitis/oralis Group(A) 07/18/2024 10:24 AM CDT [facility] Tissue/FNA Culture Moderate Streptococcus anginosus Group(A) 07/18/2024 10:24 AM CDT [facility] Tissue/FNA Culture Moderate Eikenella corrodens(A) 07/18/2024 10:24 AM CDT [facility] Comment:Susceptibility testi ng not performed. Organism is highly susceptible to ampicillin/sulbactam, amoxicillin/clavulanate, ceftriaxone, and levofloxacin. Tissue/FNA Culture Few Haemophilus parainfluenzae(A ) 07/18/2024 10:24 AM CDT [facility] Gram Stain Many WBCs seen.(A) 07/18/2024 10:24 AM CDT [facility] Gram Stain Many Gram Positive Cocci(A) 07/18/2024 10:24 AM CDT [facility] Tissue (Skin, Right Jaw) Non-blood Collection / Unknown 07/14/2024 3:57 PM CDT 07/14/2024 4:25 PM CDT Narrative Organism Antibiotic Method Susceptibility Streptococcus mitis/oralis Group Penicillin MINIMUM INHIBITORY CONCENTRATION <=0.06 mcg/mL: Susceptible Streptococcus mitis/oralis Group Ceftriaxone MINIMUM INHIBITORY CONCENTRATION <=0.12 mcg/mL: Susceptible Streptococcus mitis/oralis Group Levofloxacin MINIMUM INHIBITORY CONCENTRATION 1 mcg/mL: Susceptible Streptococcus mitis/oralis Group Vancomycin MINIMUM INHIBITORY CONCENTRATION 0.5 mcg/mL: Susceptible Streptococcus anginosus Group Penicillin MINIMUM INHIBITORY CONCENTRATION <=0.06 mcg/mL: Susceptible Streptococcus anginosus Group Ceftriaxone MINIMUM INHIBITORY CONCENTRATION 0.25 mcg/mL: Susceptible Streptococcus anginosus Group Levofloxacin MINIMUM INHIBITORY CONCENTRATION <=0.25 mcg/mL: Susceptible Streptococcus anginosus Group Vancomycin MINIMUM INHIBITORY CONCENTRATION 0.5 mcg/mL: Susceptible Aidan Estes MD MICROBIOLOGY - GENER AL ORDERABLES [facility] Unless otherwise noted, all lab tests performed by: Division of Pathology and Laboratory Medicine [address] [place] [address] * (ABNORMAL) Anaerobic Culture (07/14/2024 3:57 PM CDT) [facility] Anaerobic Culture >= 5 types of aerobic and/or anaerobic sapna excluding Bacteroides fragilis Group and excluding Clostridium perfringens.(A) 07/23/2024 11:16 AM CDT [facility] Tissue (Skin, Right Jaw) Non-blood Collection / Unknown 07/14/2024 3:57 PM CDT 07/14/2024 4:25 PM CDT Aidan Estes MD MICROBIOLOGY - GENER AL ORDERABLES [facility] Unless otherwise noted, all lab tests performed by: Division of Pathology and Laboratory Medicine [address] [place] [id number] * AFB Smear (07/14/2024 3:56 PM CDT) [facility] AFB Smear - Truant Stain No Acid-Fast Bacilli seen on fluorescent stain of Direct Specimen. No AFB seen 07/15/2024 10:10 AM CDT [facility] Tissue (Skin, Right Jaw) Non-blood Collection / Unknown 07/14/2024 3:56 PM CDT 07/14/2024 4:25 PM CDT Aidan Estes MD MICROBIOLOGY - GENER AL ORDERABLES [facility] Unless otherwise noted, all lab tests performed by: Division of Pathology and Laboratory Medicine [address] [place] [id number] * Pathology Biopsy Interpretation (07/14/2024 3:55 PM CDT) Pathologist [facility] Submitted Clinical History Jaw pain [R68.84] Mass of right submandibular region [R22.1] 07/16/2024 5:55 PM CDT [facility] Diagnosis A: Submandibular gland, right, core biopsy: Cores of fibromuscular tissue with foci of necrosis and acute inflammation No carcinoma seen [facility] 07/16/2024 5:55 PM CDT [facility] Comment Histochemical stains for periodic acid-Rut (PAS) and Gram are NEGATIVE for microorganisms. 07/16/2024 5:55 PM CDT [facility] Gross Description A: Submandibular gland, right, : Multiple choi-white cores and core fragments measuring 0.6 x 0.2 x 0.1 cm in aggregate, entirely submitted in A1. GM 07/16/2024 5:55 PM CDT [facility] Disclaimer "Some tests reported here may have been developed and performance characteristics determined by [facility] Pathology and Laboratory Medicine. These tests have not been specifically cleared or approved by the U.S. Food and Drug Administration. If applicable, controls were reviewed and showed appropriate reactivity." 07/16/2024 5:55 PM CDT [facility] Tissue (Submandibular Gland, Right) 07/14/2024 3:55 PM CDT 07/15/2024 8:10 AM CDT Dwayne Sierra MD LAB PATHOLOGY [employer] [id number] [place] [address], * CT Soft Tissue Neck with Contrast (07/12/2024 2:56 PM CDT) Only the most recent of5 resultswithin the time period is included. Anatomical Region Laterality Modality Neck Computed Tomogra phy 07/12/2024 3:15 PM CDT Impressions 07/12/2024 3:24 PM CDT 1. Subcutaneous fat stranding in the right mandibular soft tissues associated with the peripherally enhancing, centrally low-density lesion in the right submandibular soft tissues. This could represent infectious/inflammatory change. Local recurrence is not excluded image, to be followed on subsequent imaging. 2. No cervical adenopathy. ACTIONABLE ITEMS/RECOMMENDATIONS*: None. *An Actionable Finding is a finding that may be unrelated to the original reason for imaging but potentially actionable, meaning further investigation may be necessary. The Actionable Findings Vigilance Unit (AFVU) assists medical providers with responding to additional radiologic findings that are unexpected and potentially actionable. Narrative 07/12/2024 3:24 PM CDT FULL RESULT: Examination: CT SOFT TISSUE NECK W CONTRAST on 07/12/2024 2:56 PM. 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 INDICATION: R mandible/jaw pain x3d, trismus COMPARISON: 06/04/2024. TECHNIQUE: CT neck with IV contrast was performed. FINDINGS: There is mild subcutaneous fat stranding in the right submandibular soft tissues. Peripherally enhancing, centrally low-density lesion in the right submandibular soft tissues (series 8, image 34) measures up to 2.0 x 1.3 cm. This is at the margin of the flap reconstruction. Post-treatment changes: Expected post treatment changes are noted. There is no evidence of osteoradionecrosis. Lymph Nodes: There is no cervical adenopathy. Distant Sites: No metastasis is seen in the visualized brain. No bony metastasis is seen. Opacities in the right lung apex are unchanged. Procedure Note Olivia Jules MD - 07/12/2024 FULL RESULT: Examination: CT SOFT TISSUE NECK W CONTRAST on 07/12/2024 2:56 PM. 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 INDICATION: R mandible/jaw pain x3d, trismus COMPARISON: 06/04/2024. TECHNIQUE: CT neck with IV contrast was performed. FINDINGS: There is mild subcutaneous fat stranding in the right submandibular softtissues. Peripherally enhancing, centrally low-density lesion in the rightsubmandibular soft tissues (series 8, image 34) measures up to 2.0 x 1.3cm. This is at the margin of the flap reconstruction. Post-treatment changes: Expected post treatment changes are noted. There is no evidence of osteoradionecrosis. Lymph Nodes: There is no cervical adenopathy. Distant Sites: No metastasis is seen in the visualized brain. No bony metastasis is seen. Opacities in the right lung apex are unchanged. IMPRESSION: 1. Subcutaneous fat stranding in the right mandibular soft tissuesassociated with the peripherally enhancing, centrally low-density lesionin the right submandibular soft tissues. This could representinfectious/inflammatory change. Local recurrence is not excluded imagejaniya followed on subsequent imaging. 2. No cervical adenopathy. ACTIONABLE ITEMS/RECOMMENDATIONS*: None. *An Actionable Finding is a finding that may be unrelated to the originalreason for imaging but potentially actionable, meaning furtherinvestigation may be necessary. The Actionable Findings Vigilance Unit(AFVU) assists medical providers with responding to additional radiologicfindings that are unexpected and potentially actionable. Bubba Collazo MD IMG CT ORDERABLES * Procalcitonin (07/12/2024 10:16 AM CDT) Procalcitonin 0.06 <=0.08 ng/mL 07/12/2024 2:32 PM CDT [facility] Blood Peripheral blood specimen / Unknown Venipuncture / Unknown 07/12/2024 10:16 AM CDT 07/12/2024 10:20 AM CDT Narrative [facility] - 07/12/2024 2:32 PM CDT Procalcitonin > 2.00 ng/mL: Procalcitonin levels above 2.00 ng/mL are highly suggestive of a high risk for systematic bacterial infection/ severe sepsis and/or septic shock. Procalcitonin < 0.50 ng/mL: Procalcitonin levels below 0.50 ng/mL are at low risk for progression to severe sepsis and/ or septic shock. Procalcitonin (ProCT) between 0.15 and 2.0 ng/mL do not exclude infection, because localized infections (without systemic signs) may be associated with such low levels. Results greater than 400 ng/mL may not be reliable due to the matrix effect with extended dilution as it exceeds the plastic die maker apprentice's recommended limit. Caution should be exercised when interpreting such values and done in conjunction with clinical context. Bubba Collazo MD LAB BLOOD ORDERABLES [facility] Unless otherwise noted, all lab tests performed by: Division of Pathology and Laboratory Medicine [address] [place] [address] [place] [address] * (ABNORMAL) Comprehensive Metabolic Panel (07/12/2024 10:16 AM CDT) Only the most recent of6 resultswithin the time period is included. [facility] Bilirubin Total 0.3 0.0 - 1.2 mg/dL 07/12/2024 10:51 AM CDT [facility] Comment:Indocyanine Green (I CG) may cause falsely elevated bilirubin results. Total and direct bilirubin must not be measured from samples containing indocyanine green. False elevation of total bilirubin can be seen in patients with IgG concentrations above 28 g/L. eGFR 60 >=60 mL/min/1. 73 sq. m 07/12/2024 10:51 AM CDT [facility] Comment: The eGFRcr is calculated with the 2020 CKD-EPI creatinine equation using creatinine, patient's age, and sex for adults 18 years of age and older. Other factors, especially muscle mass, may affect accuracy and need to be considered. According to the Kidney Disease: Improving Global Outcomes (KDIGO) CKD Work Group 2012 Clinical Practice Guideline, chronic kidney disease (CKD) is defined as the abnormalities of kidney structure or function, present for more than 3 months, with implications for health. CKD should be classified by cause, GFR category, and albuminuria category. KDIGO guidelines provide the following GFR categories. Stage / Description / GFR mL/min/1.73 m2: G1* / Normal or high / >= 90 G2* / Mildly decreased / 60-89 G3a / Mildly to moderately decreased / 45-59 G3b / Moderately to severely decreased / 30-44 G4 / Severely decreased / 15-29 G5 / Kidney failure / <15 *In the absence of evidence of kidney damage, neither G1 nor G2 fulfill criteria for CKD. Tot Protein 6.7 6.4 - 8.3 gm/dL 07/12/2024 10:51 AM CDT [facility] Calcium Level Total 9.3 8.2 - 10.2 mg/dL 07/12/2024 10:51 AM CDT [facility] Alkaline Phosphatase 72 40 - 129 U/L 07/12/2024 10:51 AM CDT [facility] Albumin Level 4.3 3.5 - 5.2 gm/dL 07/12/2024 10:51 AM CDT [facility] AST 21 <=40 U/L 07/12/2024 10:51 AM CDT [facility] ALT 16 <=41 U/L 07/12/2024 10:51 AM CDT [facility] Sodium Level 137 136 - 145 mmol/L 07/12/2024 10:51 AM CDT [facility] Potassium Level 4.3 3.4 - 4.5 mmol/L 07/12/2024 10:51 AM CDT [facility] Chloride 100 98 - 107 mmol/L 07/12/2024 10:51 AM CDT [facility] CO2 24 22 - 29 mmol/L 07/12/2024 10:51 AM CDT [facility] Anion Gap 13 4 - 14 mmol/L 07/12/2024 10:51 AM CDT [facility] Creatinine 1.29(H) 0.67 - 1.17 mg/dL 07/12/2024 10:51 AM CDT [facility] BUN 19 6 - 23 mg/dL 07/12/2024 10:51 AM CDT [facility] Glucose Level 130(H) 70 - 99 mg/dL 07/12/2024 10:51 AM CDT [facility] Comment: Effective 04/25/16, the glucose reference intervals have been updated based on [place] Diabetes [employer] guidelines (Standards of Medical Care in Diabetes 2016. Diabetes Care 2016; 39: S13-S22). Fasting blood glucose: Normal: 70-99 mg/dL Impaired fasting glucose (increased risk for diabetes or pre-diabetes): 100-125 mg/dL Diabetes mellitus: >/=126 mg/dL Random blood glucose: Normal: 70-199 mg/dL Note: Random glucose >100 mg/dL is associated with increased risk for diabetes. Blood Peripheral blood specimen / Unknown Venipuncture / Unknown 07/12/2024 10:16 AM CDT 07/12/2024 10:20 AM CDT Bubba Collazo MD LAB BLOOD ORDERABLES [facility] Unless otherwise noted, all lab tests performed by: Division of Pathology and Laboratory Medicine [address] [place] [address] [place] [address] * aPTT (07/12/2024 10:16 AM CDT) Activated PTT 29.4 24.8 - 35.6 second(s) 07/12/2024 10:50 AM CDT [facility] Blood Peripheral blood specimen / Unknown Venipuncture / Unknown 07/12/2024 10:16 AM CDT 07/12/2024 10:20 AM CDT Bubba Collazo MD LAB BLOOD ORDERABLES Performing Organization Address City/[facility]/ZIP Co de Phone Number [facility] Unless otherwise noted, all lab tests performed by: Division of Pathology and Laboratory Medicine [address] [place] [id number] * Prothrombin Time with INR (07/12/2024 10:16 AM CDT) Prothrombin Time 12.2 12.2 - 14.4 second(s) 07/12/2024 10:50 AM CDT [facility] International Normalization Ratio 0.93 0.91 - 1.10 07/12/2024 10:50 AM CDT [facility] Blood Peripheral blood specimen / Unknown Venipuncture / Unknown 07/12/2024 10:16 AM CDT 07/12/2024 10:20 AM CDT Bubba Collazo MD LAB BLOOD ORDERABLES Performing Organization Address City/[facility] Co de Phone Number [facility] Unless otherwise noted, all lab tests performed by: Division of Pathology and Laboratory Medicine [address] [place] [id number] * CT Chest with Contrast (06/04/2024 10:22 AM CDT) Only the most recent of4 resultswithin the time period is included. Anatomical Region Laterality Modality Chest Computed Tomogra phy 06/04/2024 10:3 5 AM CDT Impressions 06/04/2024 10:44 AM CDT * Stable post treatment changes in the right upper lobe. No recurrent or new tumor. * New mild ground glass opacities in the both lower lobes are likely infectious/inflammatory. ACTIONABLE ITEMS/RECOMMENDATIONS*: None. *An Actionable Finding is a finding that may be unrelated to the original reason for imaging but potentially actionable, meaning further investigation may be necessary. The Actionable Findings Vigilance Unit (AFVU) assists medical providers with responding to additional radiologic findings that are unexpected and potentially actionable. Narrative 06/04/2024 10:44 AM CDT FULL RESULT: Examination: CT CHEST W CONTRAST on 06/04/2024 10:22 AM. Clinical History: Squamous cell carcinoma of head and neck Indication: Lung cancer suspected, cancer recurrence suspected, or cancer progression suspected, Lung neoplasm or cancer recurrence suspected, Cancer staging or restaging Comparison: CT 02/27/2024. Technique: CT of the chest is performed with intravenous contrast Findings: Lungs/Airways/Pleura: The lungs are emphysematous. Stable sequelae of radiation therapy in the right upper lobe without evidence of local neoplasm recurrence. Scattered small nonspecific lung nodules are stable and likely benign. No new suspicious lung nodules. New mild patchy groundglass opacities in the both lower lobes, right greater than left. Mild diffuse bronchial wall thickening. The central airways are patent. No pleural effusion. Neck/Mediastinum/Nodes/Heart: No supraclavicular, axillary or intrathoracic lymphadenopathy. Heart size is normal. Small pericardial fluid is unchanged. Moderate calcification of the aortic valve. Thoracic aorta is normal in caliber. Stable esophageal thickening that may represent esophagitis. Upper abdomen: Cholelithiasis. Partially imaged right kidney appears atrophic. Adrenals are unremarkable. Bones/Soft Tissues: No suspicious skeletal lesions. Procedure Note Ranjan Valadez MD - 06/04/2024 FULL RESULT: Examination: CT CHEST W CONTRAST on 06/04/2024 10:22 AM. Clinical History: Squamous cell carcinoma of head and neck Indication: Lung cancer suspected, cancer recurrence suspected, or cancerprogression suspected, Lung neoplasm or cancer recurrence suspected,Cancer staging or restaging Comparison: CT 02/27/2024. Technique: CT of the chest is performed with intravenous contrast Findings: Lungs/Airways/Pleura: The lungs are emphysematous. Stable sequelae ofradiation therapy in the right upper lobe without evidence of localneoplasm recurrence. Scattered small nonspecific lung nodules are stableand likely benign. No new suspicious lung nodules. New mild patchygroundglass opacities in the both lower lobes, right greater than left.Mild diffuse bronchial wall thickening. The central airways are patent. Nopleural effusion. Neck/Mediastinum/Nodes/Heart: No supraclavicular, axillary orintrathoracic lymphadenopathy. Heart size is normal. Small pericardialfluid is unchanged. Moderate calcification of the aortic valve. Thoracicaorta is normal in caliber. Stable esophageal thickening that may represent esophagitis. Upper abdomen: Cholelithiasis. Partially imaged right kidney appearsatrophic. Adrenals are unremarkable. Bones/Soft Tissues: No suspicious skeletal lesions. IMPRESSION: * Stable post treatment changes in the right upper lobe. No recurrent ornew tumor. * New mild ground glass opacities in the both lower lobes are likelyinfectious/inflammatory. ACTIONABLE ITEMS/RECOMMENDATIONS*: None. *An Actionable Finding is a finding that may be unrelated to the originalreason for imaging but potentially actionable, meaning furtherinvestigation may be necessary. The Actionable Findings Vigilance Unit(AFVU) assists medical providers with responding to additional radiologicfindings that are unexpected and potentially actionable. Pamela Rubin APRN [facility] CT ORDERABLES * (ABNORMAL) POC Creatinine (06/04/2024 9:10 AM CDT) Only the most recent of3 resultswithin the time period is included. POC Creatinine 1.3 0.6 - 1.3 mg/dL 06/04/2024 9:12 AM CDT [facility] Comment:Medications, especia lly hydroxyurea or supplements, such as ascorbate, can interfere with test results causing a falsely and significantly higher result than expected. If a problem is suspected with a patient's result, a sample should be sent to the laboratory for confirmatory testing. POC eGFR 59(L) >=60 mL/min/1.7 3 sq. m 06/04/2024 9:12 AM CDT [facility] Comment: The eGFRcr is calculated with the 2020 CKD-EPI creatinine equation using creatinine, patient's age, and sex for adults 18 years of age and older. Other factors, especially muscle mass, may affect accuracy and need to be considered. According to the Kidney Disease: Improving Global Outcomes (KDIGO) CKD Work Group 2012 Clinical Practice Guideline, chronic kidney disease (CKD) is defined as the abnormalities of kidney structure or function, present for more than 3 months, with implications for health. CKD should be classified by cause, GFR category, and albuminuria category. KDIGO guidelines provide the following GFR categories. Stage / Description / GFR mL/min/1.73 m2: G1* / Normal or high / >= 90 G2* / Mildly decreased / 60-89 G3a / Mildly to moderately decreased / 45-59 G3b / Moderately to severely decreased / 30-44 G4 / Severely decreased / 15-29 G5 / Kidney failure / <15 *In the absence of evidence of kidney damage, neither G1 nor G2 fulfill criteria for CKD. Blood 06/04/2024 9:10 AM CDT 06/04/2024 9:12 AM CDT Narrative [facility] - 06/04/2024 9:12 AM CDT Method description: The i-STAT is an analyzer used for in vitro quantification of various analytes in whole blood. The device uses a single disposable cartridge which contains microfabricated sensors, a calibration solution, fluidics system, and a waste chamber. Each test cartridge contains chemically sensitive biosensors on a silicon chip that are configured to perform specific tests. The microfabricated sensors measure analyte concentration by an electrochemical assay. Pamela Rubin APRN POCT ORDERABLES - DEVICE [facility] Unless otherwise noted, all lab tests performed by: Division of Pathology and Laboratory Medicine [facility] [place] [address] * (ABNORMAL) TSH (06/04/2024 9:08 AM CDT) Only the most recent of5 resultswithin the time period is included. Thyroid Stimulating Hormone 7.78(H) 0.27 - 4.20 mcunit/mL 06/04/2024 10:23 AM CDT [facility] Blood Peripheral blood specimen / Unknown Peripheral Catheter / Unknown 06/04/2024 9:08 AM CDT 06/04/2024 9:44 AM CDT Pamela Rubin APRN LAB BLOOD ORDERAB LES [facility] [address] [facility] [place] [address] * Free T4 (06/04/2024 9:08 AM CDT) Only the most recent of5 resultswithin the time period is included. T4 (Thyroxine) Free 1.21 0.92 - 1.68 ng/dL 06/04/2024 10:23 AM CDT [facility] Blood Peripheral blood specimen / Unknown Peripheral Catheter / Unknown 06/04/2024 9:08 AM CDT 06/04/2024 9:44 AM CDT Pamela Oneillfranciscaalva PILLO LAB BLOOD ORDERAB LES [facility] [address] [facility] [place] [address] * NM Bone Mineral Density Both Hips and Spine (04/15/2024 9:34 AM CDT) Anatomical Region Laterality Modality Spine Nuclear Medicine 04/15/2024 9:39 AM CDT Impressions 04/15/2024 9:47 AM CDT Osteoporosis. I personally reviewed these image(s) along with the resident's/fellow's interpretations, certify that if a procedure was performed I was physically present, and agree with the final report. Narrative 04/15/2024 9:47 AM CDT FULL RESULT: Examination: Bone Mineral Density (DXA), 04/15/2024 Clinical History: 68-year-old male with SCC of head and neck who has vitamin D deficiency. Indication: Assessment of bone mineral density.. Comparison: None. Technique: Bone mineral density was obtained using Hologic dual-energy X-ray absorptiometry. Findings: The findings are provided in the below table(s). Bone Density: Region Exam Date BMD T- Z- g/cm2 Score Score AP Spine (L1-L4) 04/15/2024 1.067 -0.2 0.7 Femoral Neck (Left) 04/15/2024 0.591 -2.5 -1.3 Total Hip (Left) 04/15/2024 0.832 -1.3 -0.7 Femoral Neck (Right) 04/15/2024 0.639 -2.1 -0.9 Total Hip (Right) 04/15/2024 0.836 -1.3 -0.6 For postmenopausal women and men age 50 and over, the World Health Organization criteria for BMD interpretation classify patients as: Normal (T-score at or above -1.0), Osteopenia (T-score between -1.0 and -2.5), or Osteoporosis (T-score at or below -2.5). Procedure Note Rafael Angel MD - 04/15/2024 FULL RESULT: Examination: Bone Mineral Density (DXA), 04/15/2024 Clinical History: 68-year-old male with SCC of head and neck who hasvitamin D deficiency. Indication: Assessment of bone mineral density.. Comparison: None. Technique: Bone mineral density was obtained using Hologic [id number]-brw absorptiometry. Findings: The findings are provided in the below table(s). Bone Density: Region Exam Date BMD T- Z- g/cm2 Score Score AP Spine (L1-L4) 04/15/2024 1.067 -0.2 0.7 Femoral Neck (Left) 04/15/2024 0.591 -2.5 -1.3 Total Hip (Left) 04/15/2024 0.832 -1.3 -0.7 Femoral Neck (Right) 04/15/2024 0.639 -2.1 -0.9 Total Hip (Right) 04/15/2024 0.836 -1.3 -0.6 For postmenopausal women and men age 50 and over, the World Health Organization criteria for BMD interpretation classify patients as: Normal (T-score at or above -1.0), Osteopenia (T-score between -1.0 and -2.5), or Osteoporosis (T-score at or below -2.5). IMPRESSION: Osteoporosis. I personally reviewed these image(s) along with the resident's/fellow'sinterpretations, certify that if a procedure was performed I wasphysically present, and agree with the final report. Ros Saucedo MD [facility] DXA ORDERABL ES * Antinuclear Antibody (BERNICE) HEp-2 Substrate, IgG (03/18/2024 9:57 AM CDT) BERNICE HEp-2 Substrate <1:80 (Negativ e) <1:80 (Negativ e) 03/20/2024 8:48 PM CDT [facility] Comment: ADDITIONAL INFORMATION Method: Immunofluorescence using HEp-2 cellular substrate. Test Performed by: [place] [address] Director Independent: Mirna Canas Ph.D.; CLIA# [id number] BERNICE Titer DNR 03/20/2024 8:48 PM CDT [facility] BEAKER BERNICE Pattern DNR 03/20/2024 8:48 PM CDT [facility] BEAKER BERNICE Titer 2 DNR 03/20/2024 8:48 PM CDT [facility] BEAKER BERNICE Pattern 2 DNR 03/20/2024 8:48 PM CDT [facility] BERNICE Cytoplasmic Pattern DNR 03/20/2024 8:48 PM CDT [facility] BERNICE Lab Comment DNR 8:48 PM CDT [facility] Blood Peripheral blood specimen / Unknown Venipuncture / Unknown 03/18/2024 9:57 AM CDT 03/18/2024 10:00 AM CDT Ros Saucedo MD LAB BLOOD ORDERA BLES [facility] * Cyclic Citrullinated Peptide Ab (03/18/2024 9:57 AM CDT) Pathologist [facility] CCP Ab-Raymond <15.6 <20.0 (Negative) U 03/20/2024 10:42 AM CDT [facility] Comment: Test Performed by: [facility] [place] [address] Director Independent: Mirna Canas Ph.D.; CLIA# [id number] Blood Peripheral blood specimen / Unknown Venipuncture / Unknown 03/18/2024 9:57 AM CDT 03/18/2024 10:00 AM CDT Ros Saucedo MD LAB BLOOD ORDERA BLES [facility] * (ABNORMAL) Uric Acid (12/05/2023 6:52 AM GLOBAL MARKETING OPERATIONS MANAGER) Uric Acid 7.1(H) 3.4 - 7.0 mg/dL 12/05/2023 11:44 AM GLOBAL MARKETING OPERATIONS MANAGER [facility] Blood Peripheral blood specimen / Unknown Peripheral Catheter / Unknown 12/05/2023 6:52 AM GLOBAL MARKETING OPERATIONS MANAGER 12/05/2023 7:37 AM GLOBAL MARKETING OPERATIONS MANAGER Pamela Rubin SLOPE HOIST OPERATOR LAB BLOOD ORDERAB LES [facility] [address] [facility]. [address] [place] [address] after 08/07/2023 Advance Directives * Full Code (Latest Code Status on File) Date Activated Date Inactivated Comments 07/12/2024 8:43 PM 07/17/2024 3:53 PM * Full Code Date Activated Date Inactivated Comments 12/01/2021 2:20 PM 12/12/2021 8:52 PM * Full Code Date Activated Date Inactivated Comments 2021 10:42 PM 09/22/2021 1:15 PM * Full Code Date Activated Date Inactivated Comments 09/01/2021 3:50 PM 09/07/2021 8:15 PM * Full Code Date Activated Date Inactivated Comments 07/28/2021 11:06 PM 08/04/2021 8:33 PM Care Teams File Drawer Finisher Relationship Specialty Start Date End Date Wen Cantu MD [address] [place] [phone] [email or web address] PCP - General Head and Neck Surgery 06/20/21 Rehan Gagnon MD [address] [place] [phone] [email or web address] Consulting Physician Radiation Oncology 07/10/21 Dianna Rich DDS [address] [place] [phone] [email or web address] Consulting Physician Dental Oncology 10/23/22 Yolanda Kingston MD [address] [place] [phone] [email or web address] Consulting Physician Thoracic Medicine 07/06/21 Weston Ontiveros MD [address] [place] [address] [phone] [email or web address] Consulting Physician Plastic and Reconstructive Surgery 07/20/21 Az Cruz MD [address] [place] [address] [phone] [email or web address] Consulting Physician Internal Medicine 07/18/21 Kalee Jules MD [address] [place] [phone] [email or web address] Consulting Physician Radiation Oncology 06/08/22 Ros Saucedo MD [address] [place] [address] [email or web address] Consulting Physician Rheumatology 03/18/24
[2024-08-06] MEDS ORDERED: NA CHLORIDE 0.9% 1,000 ML ONE (19:51)
[2024-08-06 20:13] LABS: Absolute Basophils 0.1 K/uL (0-0.5); Absolute Eosinophils 0.2 K/uL (0-0.5); Absolute Lymphocytes (CBC) 0.7 K/uL (0.7-4.9); Absolute Neutrophil 14.6 K/uL (1.8-8.0); Basophils % 0.4 % (0-1.3); Eosinophils % 1.3 % (0-4.4); Hematocrit 34.7 % (39.6-49.0); Hemoglobin 11.5 g/dL (13.6-17.9); Lymphocytes % 4.5 % (15.3-44.8); MCH 31.2 pg (27.0-35.0); MCHC 33.1 g/dL (32.0-36.0); MCV 94.4 fL (80-100); MPV 8.5 fL (7.6-11.3); Monocytes % 5.9 % (3.3-12.3); Neutrophils % 87.9 % (41.7-73.7); Platelets 215 thou/uL (152-406); RBC Red Blood Cell Count 3.68 M/uL (4.33-5.43); Red Cell Distribution Width 16.1 % (12.1-15.2)
[2024-08-06 20:28] LABS: Albumin 3.8 g/dL (3.4-5.0); Albumin/Globulin Ratio 1.1 (1.1-1.8); Anion Gap 9.1 mEq/L (5.0-15.0); Bilirubin Total 0.4 mg/dL (0.2-1.0); Globulin 3.6 g/dL (2.3-3.5); Potassium 4.1 mEq/L (3.5-5.1); Protein, Total 7.4 g/dL (6.4-8.2)
[2024-08-06] MEDS ORDERED: CEFTRIAXONE 1000 MG/VIAL ONE (20:32)
[2024-08-06] MEDS ORDERED: MORPHINE 4 MG/ML SYR ONE (20:33)
--- NOTE | 2024-08-06 21:39 | RAD REPORT ---
EXAMINATION: CT Abdomen Pelvis W Contrast CLINICAL INDICATION: Male, 68 years old. CONSTIPATION TECHNIQUE: CT abdomen and pelvis was performed, after the administration of IV contrast, as per [facility] protocol. Axial, sagittal and coronal reconstructions were obtained. One or more of the following dose reduction techniques were used: Automated exposure control, adjustment of the mA and k V according to patient size, and iterative reconstruction. Unless otherwise specified, incidental findings do not require dedicated imaging follow-up. COMPARISON: No prior exam. FINDINGS: LOWER CHEST: Patchy airspace opacities in the dependent lower lobes bilaterally. LIVER: Normal in size and contour. No focal lesion. BILIARY SYSTEM: Multiple calcified stones. No pericholecystic fluid. SPLEEN: Normal size. No focal lesion. PANCREAS: No mass, ductal dilation, or marty-pancreatic fluid. ADRENALS: Normal; no mass. KIDNEYS: Atrophic changes of the right kidney. Perinephric fat stranding along the mid to lower pole of the left kidney, with no abnormal enhancement parenchymal pattern. No hydronephrosis. URINARY BLADDER: Unremarkable. GASTROINTESTINAL TRACT: No evidence of free air, significant intra-abdominal free fluid, bowel obstru ction or abscess. Distal colonic diverticulosis. Mild to moderate stool burden in the rectum. Fluid opacification of the proximal colon to the level of the lower descending colon. APPENDIX: Normal appendix. LYMPH NODES: No lymphadenopathy. MUSCULOSKELETAL: No acute or suspicious osseous abnormality. ADDITIONAL FINDINGS: None. IMPRESSION: Fluid opacification of the proximal colon, may relate to colitis or diarrheal state. Mild to moderate stool burden in the rectum. Nonspecific perinephric fat stranding along the mid to lower left renal pole, may relate to sequelae of recent or remote infection. Cholelithiasis Patchy airspace opacities in the dependent lower lung lobes, may suggest multifocal pneumonitis.
[2024-08-06 22:13] LABS: PT Prothrombin Time 10.1 SECONDS (9.4-12.5); PTT, Activated Partial Thromb 32.2 SECONDS (24.3-36.9); Protime INR 0.9
[2024-08-06 22:56] LABS: Specific Gravity 1.026 (1.005-1.030); Sqamous Epithelial <5 /HPF (None Seen); Urine Bacteria None Seen /HPF (<20); Urine Bilirubin NEGATIVE (Negative); Urine Blood Negative (Negative); Urine Clarity Clear (Clear); Urine Color Colorless (Yellow); Urine Culture Reflex Order NOT NEEDED; Urine Glucose NEGATIVE (Negative); Urine Ketones NEGATIVE (Negative); Urine Microscopic Reflex YN ORDER UMIC; Urine Nitrite NEGATIVE (Negative); Urine Protein TRACE (Negative); Urine RBC <5 /HPF (None Seen); Urine Urobilinogen Normal (Normal); Urine WBC <5 /HPF (<5); Urine pH 6.5 (5.0-7.0)
--- NOTE | 2024-08-06 23:07 | ER ---
Nurse's Notes [facility] Name: Sunita Cameron Age: 68 yrs Sex: Male : 1955 Arrival Date: 08/06/2024 Time: 18:46 Bed 2 Private MD: Diagnosis: Constipation, unspecified;Leukocytosis Presentation: 08/06 19:19 Chief complaint: Patient states: I don't have abdominal pain, I just feel like I really tm6 need to have a bowel movement. My pain is more in my rectum. My last BM was Saturday or Saturday. I have tried two suppositories today and took milk of magnesia but nothing has helped. It feels like something is blocking my BM. I am on [place] and Prednisone. Coronavirus screen: Client denies travel out of the [place] in the last 14 days. Ebola Screen: Patient negative for fever greater than or equal to 101.5 degrees Fahrenheit, and additional compatible Ebola Virus Disease symptoms Patient denies exposure to infectious person. Patient denies travel to an Ebola-affected area in the 21 days before illness onset. No symptoms or risks identified at this time. Initial Sepsis Screen: Does the patient meet any 2 criteria? No. Patient's initial sepsis screen is negative. Does the patient have a suspected source of infection? No. Patient's initial sepsis screen is negative. Risk Assessment: Do you want to hurt yourself or someone else? Patient reports no desire to harm self or others. Onset of symptoms was August 06, 2024. 19:19 Method Of Arrival: Ambulatory tm6 19:19 Acuity: GEGE 4 tm6 Triage Assessment: 19:24 General: Appears in no apparent distress. uncomfortable, Behavior is cooperative. Pain: tm6 Complains of pain in buttocks Pain currently is 10 out of 10 on a pain scale. EENT: No signs and/or symptoms were reported regarding the EENT system. Neuro: Level of Consciousness is awake, alert, obeys commands, Oriented to person, place, time, situation. Cardiovascular: Patient's skin is warm and dry. Respiratory: Airway is patent Respiratory effort is even, unlabored, Respiratory pattern is regular, symmetrical. GI: Abdomen is flat, non-distended, Reports constipation. : No signs and/or symptoms were reported regarding the genitourinary system. Derm: No signs and/or symptoms reported regarding the dermatologic system. Musculoskeletal: No signs and/or symptoms reported regarding the musculoskeletal system. 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 - Infectious Disease History:: Denies. - Social history:: Smoking status: Patient denies any tobacco usage or history of. Patient/guardian denies using alcohol, Patient uses alcohol, occasionally. - Family history:: not pertinent. - Hospitalizations: : No recent hospitalization is reported. Screenin:38 [facility] ED Fall Risk Assessment (Adult) History of falling in the last 3 months, jj7 including since admission No falls in past 3 months (0 pts) Confusion or Disorientation No (0 pts) Intoxicated or Sedated No (0 pts) Impaired Gait No (0 pts) Mobility Assist Device Used No (0 pt) Altered Elimination No (0 pt) Score/Fall Risk Level 0 - 2 = Low Risk Oriented to surroundings, Maintained a safe environment, Educated pt \T\ family on fall prevention, incl call for assistance when getting out of bed, Assessed \T\ reinforced patient's understanding of fall precautions. Abuse screen: Denies threats or abuse. Nutritional screening: No deficits noted. Tuberculosis screening: No symptoms or risk factors identified. Assessment: 19:38 General: Appears in no apparent distress. uncomfortable, Behavior is calm, cooperative, jj7 appropriate for age. Pain: Denies pain. GI: Abd is soft and non tender X 4 quads. Reports constipation. Vital Signs: 19:18 BP 151 / 65; Pulse 92; Resp 19; Temp 98.8; Pulse Ox 97% on R/A; MAP 89 mmHg; Weight tm6 83.91 kg; Height 5 ft. 10 in. ; Pain 10/10; 20:28 BP 139 / 70; Pulse 85; Resp 16; Pulse Ox 98% ; jj7 21:30 BP 123 / 51; Pulse 89; Resp 16; Pulse Ox 96% ; jj7 22:30 BP 155 / 73; Pulse 85; Resp 17; Pulse Ox 98% ; jj7 23:33 BP 132 / 66; Pulse 84; Resp 16; Temp 98.3; Pulse Ox 98% ; Pain 0/10; jj7 19:18 Body Mass Index 26.54 (83.91 kg, 177.8 cm) tm6 19:18 Pain Scale: Adult tm6 23:33 Pain Scale: Adult j7 ED Course: 18:51 Patient arrived in ED. mr 19:22 Triage completed. tm6 19:24 Arm band placed on left wrist. tm6 19:31 Gita Olivera, DAVE is Primary Nurse. jj7 19:34 Mario Pineda MD is Attending Physician. rn 19:38 Patient has correct armband on for positive identification. Placed in gown. Bed in low jj7 position. Call light in reach. Adult w/ patient. Provided Education on: USE OF CALL BAUTISTA. Client placed on continuous cardiac and pulse oximetry monitoring. NIBP monitoring applied. 19:40 Warm blanket given. jj7 20:03 CBC with Diff Sent. jj7 20:03 CMP Sent. jj7 20:03 Lipase Sent. jj7 20:04 Inserted saline lock: 20 gauge in right antecubital area, using aseptic technique. ha1 Blood collected. Flushed with 10 mL NS. 20:23 Attending Physician role handed off by Mario Pineda MD ec2 20:23 Bautista Valadez MD is Attending Physician. ec2 21:18 CT Abd/Pelvis - IV Contrast Only In Process Unspecified. EDMS 21:40 First set of blood cultures drawn by ED staff. jj7 21:47 Blood Culture Adult (2) Sent. jj7 21:50 Lactate w/ 2H reflex if indic. Sent. vk 21:50 Protime (+inr) Sent. vk 21:50 Ptt, Activated Sent. vk 21:50 Initial lab(s) drawn, by nj, sent to lab. vk 22:34 Blood Culture Adult (2) Sent. jj7 22:34 Urinalysis w/ reflexes Sent. jj7 23:05 Blood Culture Adult (2) Sent. jj7 23:32 No provider procedures requiring assistance completed. IV discontinued, intact, jj7 bleeding controlled, No redness/swelling at site. Pressure dressing applied. Administered Medications: 20:03 Drug: NS 0.9% IV 500 ml 500 ml IV at 1 bolus once; to be given as a bolus over 30 jj7 minutes Volume: 500 ml; Route: IV; Rate: 1 bolus; Site: right antecubital; 20:35 Follow up: IV Status: Completed infusion jj7 20:35 Drug: morphine IVP or IV 4 mg IVP once over 4 mins Route: IVP; Infused Over: 4 mins; jj7 Site: right antecubital; 23:04 Follow up: Response: Marked relief of symptoms; Pain is decreased jj7 22:44 Drug: Rocephin IV 1 grams IV at calculated rate once; Given slow IV push per pharmacy jj7 instructions Route: IV; Rate: calculated rate; Site: right antecubital; 23:00 Follow up: IV Status: Completed infusion jj7 23:32 Drug: Lactulose PO 30 grams 45 ml PO once Volume: 45 ml; Route: PO; jj7 23:32 Follow up: Response: No adverse reaction jj7 Medication: 19:38 VIS not applicable for this client. jj7 Outcome: 23:06 Discharge ordered by MD. davis 23:34 Discharged to home ambulatory, with significant other, jj7 23:34 Condition: improved 23:34 Discharge instructions given to patient, family, Instructed on discharge instructions, medication usage, Demonstrated understanding of instructions, medications, Prescriptions given X 1, 23:34 Patient left the ED. jj7 Signatures: Dispatcher [employer] Elina Martinez, Reg Mario Griffin MD MD rn Ayala, Heidy, RN RN Gita Cooper RN RN [email or web address] Bautista Valadez MD MD ec2 Bettye Wyatt RN RN tm6 Mabel Goins
--- NOTE | 2024-08-06 23:07 | EDPHYS ---
Physician Documentation [facility] Name: Sunita Cameron Age: 68 yrs Sex: Male : 1955 Arrival Date: 08/06/2024 Time: 18:46 Bed 2 Private MD: ED Physician Bautista Valadez HPI: 08/06 19:53 This 68 yrs old Male presents to ER via Ambulatory with complaints of Abdominal Pain, rn Constipation. 19:53 The patient presents with. Onset: The symptoms/episode began/occurred at an unknown rn time. Associated signs and symptoms: Pertinent positives: constipation, Pertinent negatives: blood in stools, diarrhea, fever. Modifying factors: The symptoms are alleviated by nothing, the symptoms are aggravated by nothing. The patient has not experienced similar symptoms in the past. The patient has not recently seen a physician. Patient reports mild abdominal cramping and constipation. Has tried suppositories without normal bowel movement. Is passing gas. No history of obstruction. Family member reports patient not eating or drinking lately.. 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 - Infectious Disease History:: Denies. - Social history:: Smoking status: Patient denies any tobacco usage or history of. Patient/guardian denies using alcohol, Patient uses alcohol, occasionally. - Family history:: not pertinent. - Hospitalizations: : No recent hospitalization is reported. ROS: 19:53 Constitutional: Negative for fever, chills, and weight loss, Cardiovascular: Negative rn for chest pain, palpitations, and edema, Respiratory: Negative for shortness of breath, cough, wheezing, and pleuritic chest pain, Abdomen/GI: Positive for abdominal pain and constipation Exam: 19:53 Constitutional: This is a well developed, well nourished patient who is awake, alert, rn and in no acute distress. Cardiovascular: Regular rate and rhythm. No pulse deficits. Respiratory: No increased work of breathing, no retractions or nasal flaring. Abdomen/GI: Soft, no focal tenderness. No distention Vital Signs: 19:18 BP 151 / 65; Pulse 92; Resp 19; Temp 98.8; Pulse Ox 97% on R/A; MAP 89 mmHg; Weight tm6 83.91 kg; Height 5 ft. 10 in. ; Pain 10/10; 20:28 BP 139 / 70; Pulse 85; Resp 16; Pulse Ox 98% ; jj7 21:30 BP 123 / 51; Pulse 89; Resp 16; Pulse Ox 96% ; jj7 22:30 BP 155 / 73; Pulse 85; Resp 17; Pulse Ox 98% ; jj7 23:33 BP 132 / 66; Pulse 84; Resp 16; Temp 98.3; Pulse Ox 98% ; Pain 0/10; jj7 19:18 Body Mass Index 26.54 (83.91 kg, 177.8 cm) tm6 19:18 Pain Scale: Adult tm6 23:33 Pain Scale: Adult jj7 MDM: 19:34 Medical Screening Exam initiated rn 21:02 Data reviewed: vital signs. ED course: Patient signed out to your previous physician, ec2 in brief arrives today for evaluation of abdominal pain and concern for constipation. Lab work shows a leukocytosis at 16, metabolic profile that shows her dysfunction with a creatinine 1.44. Plan is to follow-up rest of lab work, CT imaging. Added on septic workup given heart rate as well as leukocytosis. Differential diagnosis includes diverticulitis, constipation.. 21:56 ED course: CT imaging shows possible colitis, mild stool burden in the rectum. Some ec2 perinephric fat stranding noted on the left kidney. Possible multifocal pneumonitis.. 22:04 ED course: Pending urine studies, patient states that he will be able to give us urine. ec2 Patient declined additional lab work, states that he "always has an elevated white cell count ".. 22:59 ED course: EKG obtained, independently reviewed and interpreted by me, shows normal ec2 sinus rhythm, rate of 87, no acute ST segment elevation, intervals are nonactionable. Patient is well-appearing no acute distress. Will have the patient discharged and follow-up outpatient with PCP. Will prescribe the patient lactulose for his constipation.. 08/06 19:32 Order name: CBC with Diff; Complete Time: 20:23 rn 08/06 19:32 Order name: CMP; Complete Time: 20:47 rn 08/06 19:32 Order name: Lipase; Complete Time: 20:47 rn 08/06 20:24 Order name: Blood Culture Adult (2) ec2 08/06 20:24 Order name: Lactate w/ 2H reflex if indic.; Complete Time: 22:48 ec2 08/06 20:24 Order name: Protime (+inr); Complete Time: 22:48 ec2 08/06 20:24 Order name: Ptt, Activated; Complete Time: 22:48 ec2 08/06 20:24 Order name: Urinalysis w/ reflexes; Complete Time: 22:58 ec2 08/06 23:14 Order name: Glucose, Ancillary Testing EDMS 08/06 19:32 Order name: CT Abd/Pelvis - IV Contrast Only; Complete Time: 21:55 rn 08/06 20:24 Order name: EKG; Complete Time: 20:25 ec2 08/06 19:32 Order name: IV Saline Lock; Complete Time: 20:03 rn 08/06 19:32 Order name: Labs collected and sent; Complete Time: 20:03 rn 08/06 20:24 Order name: Accucheck; Complete Time: 23:05 ec2 08/06 20:24 Order name: Cardiac monitoring; Complete Time: 21:49 ec2 08/06 20:24 Order name: EKG - Nurse/Tech; Complete Time: 23:05 ec2 08/06 20:24 Order name: IV Saline Lock - Large Bore; Complete Time: 21:50 ec2 08/06 20:24 Order name: O2 Per Protocol; Complete Time: 21:48 ec2 08/06 20:24 Order name: O2 Sat Monitoring; Complete Time: 21:48 ec2 08/06 20:24 Order name: Vital Signs; Complete Time: 20:39 ec2 Administered Medications: 20:03 Drug: NS 0.9% IV 500 ml 500 ml IV at 1 bolus once; to be given as a bolus over 30 jj7 minutes Volume: 500 ml; Route: IV; Rate: 1 bolus; Site: right antecubital; 20:35 Follow up: IV Status: Completed infusion jj7 20:35 Drug: morphine IVP or IV 4 mg IVP once over 4 mins Route: IVP; Infused Over: 4 mins; jj7 Site: right antecubital; 23:04 Follow up: Response: Marked relief of symptoms; Pain is decreased jj7 22:44 Drug: Rocephin IV 1 grams IV at calculated rate once; Given slow IV push per pharmacy jj7 instructions Route: IV; Rate: calculated rate; Site: right antecubital; 23:00 Follow up: IV Status: Completed infusion jj7 23:32 Drug: Lactulose PO 30 grams 45 ml PO once Volume: 45 ml; Route: PO; jj7 23:32 Follow up: Response: No adverse reaction jj7 Disposition Summary: 08/06/24 23:06 Discharge Ordered Notes: Location: Home ec2 Condition: Stable ec2 Diagnosis - Constipation, unspecified ec2 - Leukocytosis ec2 Followup: ec2 - With: Private Physician - When: - Reason: Re-evaluation by your physician Discharge Instructions: - Discharge Summary Sheet ec2 - Constipation, Adult ec2 Forms: - Medication Reconciliation Form ec2 - Antibiotic Education ec2 - Prescription Opioid Use ec2 - Patient Portal Instructions ec2 - Leadership Thank You Letter ec2 Prescriptions: - Lactulose 10 gram/15 mL Oral Solution - take 30 milliliters ORAL route once daily; 300 milliliter; Refills: 0, Product ec2 Selection Permitted Signatures: Dispatcher [employer] EDMS Mario Pineda MD MD rn Johnson, Juwairiyah, RN RN jj7 Bautista Valadez MD MD ec2 Bettye Wyatt RN RN tm6 Corrections: (The following items were deleted from the chart) 20:25 20:25 BLOOD CULTURE*+BA.LAB.BRZ ordered. EDMS EDMS 20:25 20:25 LACTATE+C.LAB.BRZ ordered. EDMS EDMS 20:25 20:25 PROTIME (+INR)+COAG.LAB.BRZ ordered. EDMS EDMS 20:25 20:25 PTT, ACTIVATED+COAG.LAB.BRZ ordered. EDMS EDMS 20:25 20:25 Urinalysis+U.LAB.BRZ ordered. EDMS EDMS
[2024-08-06] MEDS ORDERED: LACTULOSE 20 GM/30 ML UCUP ONE ×2 (23:26→23:27)
[2024-08-07 00:12] VITALS: O2SAT 98
[2024-08-07 00:13] VITALS: BP 132/66; TEMP 98.3
--- NOTE | 2024-08-07 15:08 | EKG ---
Test Date: 2024-08-06 Test Time: 22:59:40 Hatchery Man: EDISON MEASUREMENT RESULTS: Intervals: Rate: 87 [place]: 134 QRSD: 56 QT: 328 QTc: 394 [place]: P: 57 [place]: 134 QRS: 20 T: 54 INTERPRETIVE STATEMENTS: Normal sinus rhythm Anterior infarct, age undetermined Abnormal ECG No previous ECG available for comparison Electronically Signed On 08-07-24 15:06:49 PLASTICS SCIENTIST by Niels Page
== END 2024-08-06 23:34 | disposition home or self-care (01) ==
LOC: ER 18:46
DX: K59.00 Constipation, unspecified (principal); D72.829 Elevated white blood cell count, unspecified; I10 Essential (primary) hypertension; Z28.310 Unvaccinated for COVID-19
CPT/HCPCS: 96365; 96361; 93005; 87040 ×2; 85025; 81001; 36415; 85610; 82947; 83605; 85730; 83690; 80053; 74177; 96375; 99284; Q9967; J7030; J0696